=== PATIENT | male | born 1930 | race Caucasian/White ===

== ENCOUNTER 2017-06-04 12:55 | Inpatient (IN) | payer OTHER, BC ==
--- NOTE | 2017-06-04 13:13 | PDOC ---
Attending Attestation - Resident Resident Name: Elvira Cho - ED Attending Attestation I have performed the following: I have examined & evaluated the patient, The case was reviewed & discussed with the resident, I agree w/resident's findings & plan, Exceptions are as noted - HPI HPI: 87 yo M hx Parkinson's, HTN, HL, hyperthyroid, diverticulitis, R hemicolectomy presents after mechanical fall. He sustained injuries to his face as he hit the ground. No LOC, no headache. He notes pain to the nasal bridge with significant bleeding from the nares B/L. +Laceration to R nare. No loose teeth (he wears dentures). Denies weakness, numbness. - Physicial Exam PE: GENERAL: Awake, alert, and fully oriented, in no acute distress HEAD: +Multiple abrasions to the forehead, nose, and chin. +Laceration to the tip of the R nare extending to the mucosal surface. +Small arteriole bleeding at the tip of the R nare. +Oozing of blood from the chin and forehead abrasions. +Swelling to mid-forehead. EYES: PERRLA, EOMI, sclera anicteric, conjunctiva clear ENT: Auricles normal inspection, hearing grossly normal, oropharynx clear without exudates. Moist mucosa. Nares with bleeding B/L. Nose with obvious deformity. No oral mucosal lesions. NECK: Normal ROM, supple, no lymphadenopathy, JVD, or masses LUNGS: Breath sounds equal, clear to auscultation bilaterally. No wheezes, and no crackles HEART: Regular rate and rhythm, normal S1 and S2, no murmurs, rubs or gallops ABDOMEN: Soft, nontender, normoactive bowel sounds. No guarding, no rebound. No masses EXTREMITIES: Normal range of motion, no edema. No clubbing or cyanosis. No cords, erythema, or tenderness NEUROLOGICAL: Cranial nerves II through XII grossly intact. Normal speech, normal gait. Motor and sensation intact. SKIN: Warm, Dry, normal turgor, no rashes or lesions noted. - Medical Decision Making Sutures placed to the tip of the nose for hemostasis. Will contact ENT or plastics for repair of the interior portion of the nare. No oral bleeding- dentures are glued in place, unable to remove.
--- NOTE | 2017-06-04 13:28 | PDOC ---
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 He notes that he just got new orthotic shoes around [place] time, and is not used to them yet, and he tripped and fell while trying to walk to his mailbox. He did not have any preceding symptoms, and did not lose consciousness. He has been bleeding from multiple facial lacerations since that time. He denies any current or recent dizziness, chest pain, SOB, abdominal pain, other bodily pain, vision changes, new numbness/ tingling/weakness, or other symptoms recently. Past History - Past Medical History Allergies/Adverse Reactions: Allergies Allergy/AdvReac Type Severity Reaction Status Date / Time No Known Allergies Allergy Verified 04/06/16 15:17 Home Medications: Ambulatory Orders Aspirin [Baby Aspirin] 81 mg PO DAILY 06/28/11 Cholecalciferol (Vitamin D3) [Vitamin D3 -] 0 unit PO DAILY 06/28/11 Lisinopril [Prinivil] 20 mg PO DAILY 06/28/11 Ropinirole HCl [Requip Xl] 4 mg PO BID 06/28/11 Simvastatin [Zocor] 20 mg PO DAILY 06/28/11 Propylthiouracil [Ptu -] 50 mg PO BID 07/13/11 Benztropine Mesylate [Cogentin -] 1 mg PO DAILY 04/06/16 Carbidopa/Levodopa/Entacapone [Miyfeovck-Wshwhqck-Ccub 200 mg] 1 each PO TID 11/13 Polyethylene Glycol [Polyox Wsr-301] 1 gm MC DAILY #30 powder 04/08/16 Ranitidine [Zantac -] 150 mg PO BID #60 tablet 04/08/16 Anemia: No Asthma: No Cancer: No Cardiac Disorders: No CVA: No COPD: No CHF: No Dementia: No Diabetes: No GI Disorders: Yes (H/O COLONIC POLYPS, DIVERTICULOSIS) Disorders: Yes (MICROSCOPIC HEMATURIA) HTN: Yes Hypercholesterolemia: Yes Liver Disease: No Seizures: No Thyroid Disease: Yes (HYPERTHYROIDISM) - Surgical History Abdominal Surgery: (RIGHT HEMICOLECTOMY) Appendectomy: Yes (S/P HEMICOLECTOMY FOR APPENDICEAL ABCESS) Cardiac Surgery: No Cholecystectomy: No Lung Surgery: No Neurologic Surgery: No Orthopedic Surgery: No - Immunization History Immunization Up to Date: No - Suicide/Smoking/Psychosocial Hx Smoking Status: No Smoking History: Former smoker Have you smoked in the past 12 months: No Number of Cigarettes Smoked Daily: 0 If you are a former smoker, when did you quit?: 1975 Hx Alcohol Use: Yes (SOCIAL) Drug/Substance Use Hx: No Substance Use Type: None Hx Substance Use Treatment: No Trauma Specific PMHX - Complaint Specific PMHX Arthritis: Yes ED Treatment Course - LABORATORY CBC & Chemistry Diagram: 06/04/17 14:15 06/04/17 14:15 Medical Decision Making - Medical Decision Making 87 YOM on blood thinners, with Parkinsons and occasional falls, p/w fall, facial lacs, bleeding from nares. On exam VS not concerning, he is in no distress but oozing blood from facial lacerations, nasal tip lac extends inside right nare. Frontal inferior cephalohematoma but no other obvious signs of skull fxr. Initially shoulders symmetric bilaterally and 3x3cm left shoulder superficial abrasion noted. Subsequently 6x6 cm firm hematoma versus bony deformity develops. Ordered is CBCD CMP Coags T&S Cardiac panel EKG CXR Shoulder XR Clavicle XR and CT head/facial bones/c-spine. 06/04/17 16:18 Spoke with ENT senior quality control inspector who recommends packing x15-20 min with Afrin-soaked 4x4, then vaseline-soaked gauze. If unable to achieve hemostasis we will call back. If hemostasis is achieved there is no need to repair intranasal laceration. 06/04/17 19:58 Epistaxis stopped with Afrin gauze packing and tongue blade splint. Patient able to urinate and gives sample for UA. Still denies any pain. Patient has been admitted to Obs Med/Surg. Augmentin ordered. *DC/Admit/Observation/Transfer Diagnosis at time of Disposition: Fall from ground level, Gait abnormality, Epistaxis Facial laceration Qualifiers: Encounter type: initial encounter Qualified Code(s): S01.81XA - Laceration without foreign body of other part of head, initial encounter Nasal bone fracture Qualifiers: Encounter type: initial encounter Fracture type: closed Qualified Code(s): S02.2XXA - Fracture of nasal bones, initial encounter for closed fracture - Discharge Dispostion Condition at time of disposition: Guarded Admit: Yes - Referrals Referrals: Marcello Hill MD [Primary Care Provider] - - Patient Instructions - Post Discharge Activity
[2017-06-04] MEDS ORDERED: AMPICILLIN NA/SULBACTAM NA 3 GM in SODIUM CHLORIDE 100 ML IVPB ONE ×2 (14:08→21:30)
[2017-06-04 14:23] LABS: BASO % 0.3 % (0-2.0); EOS % 0.5 % (0-4.5); HEMATOCRIT 42.7 % (35.4-49); HEMOGLOBIN 13.8 GM/dL (11.7-16.9); LYMPH % 13.5 % (8-40); MCH 28.9 pg (25.7-33.7); MCHC 32.3 g/dl (32.0-35.9); MEAN CELL VOLUME 89.5 fl (80-96); MEAN PLT VOLUME 8.6 fl (7.5-11.1); MONO % 9.7 % (3.8-10.2); PLATELET COUNT 126 K/MM3 (134-434); RBC 4.77 M/mm3 (4.00-5.60); RDW 13.1 % (11.9-15.9); WHITE BLOOD COUNT 8.1 K/mm3 (4.0-10.0)
[2017-06-04 14:36] LABS: INR 0.97 (0.82-1.09)
[2017-06-04 14:54] LABS: ALBUMIN 3.8 g/dl (3.4-5.0); ANION GAP 6 (8-16); BILIRUBIN,TOTAL 0.7 mg/dL (0.2-1.0); BLOOD UREA NITROGEN 19 mg/dL (7-18); CALCIUM 8.8 mg/dL (8.5-10.1); CHLORIDE 104 mmol/L (98-107); CO2 30 mmol/L (21-32); CREATININE 1.1 mg/dL (0.7-1.3); GLUCOSE,RANDOM 94 mg/dL (74-106); POTASSIUM 4.2 mmol/L (3.5-5.1); SGOT/AST 21 U/L (15-37); SGPT/ALT 16 U/L (12-78); SODIUM 140 mmol/L (136-145); TOT PROT 7.2 g/dl (6.4-8.2)
[2017-06-04] MEDS ORDERED: DIPHTH,PERTUSS(ACELL),TET 0.5 ML DISP.SYRIN IM ONE (14:54)
[2017-06-04 14:56] LABS: ALK PHOS 65 U/L (45-117)
[2017-06-04] MEDS ORDERED: OXYMETAZOLINE 0.05% NASAL SOLUTION 15 ML BOTTLE NS ONE (16:55)
[2017-06-04 19:49] LABS: URINE APPEARANCE CLEAR; URINE BILIRUBIN NEGATIVE (NEGATIVE); URINE BLOOD 1+ (NEGATIVE); URINE COLOR YELLOW; URINE GLUCOSE (UA) NEGATIVE (NEGATIVE); URINE KETONE TRACE (NEGATIVE); URINE LEUK ESTERASE NEGATIVE (NEGATIVE); URINE NITRITE NEGATIVE (NEGATIVE); URINE PROTEIN NEGATIVE (NEGATIVE); URINE UROBILINOGEN NEGATIVE mg/dL (0.2-1.0)
[2017-06-04 19:53] LABS: EPI CELLS RARE /HPF (FEW); URINE MUCUS RARE
[2017-06-04] MEDS ORDERED: SODIUM CHLORIDE 500 ML IV STA (20:17)
--- NOTE | 2017-06-04 21:00 | PN ---
Teaching Attending Note Name of Resident: Michelle Shepherd ATTENDING PHYSICIAN STATEMENT I saw and evaluated the patient. I reviewed the resident's note and discussed the case with the resident. I agree with the resident's findings and plan as documented. SUBJECTIVE: 87 With pmhx Parkinson's, HTN, HLD, Hyperthyriodism, Diverticulitis, R. Hemicolectomy who presents after a mechanical fall. He stated he was shuffeling his feet and he fell. He hit his face on the ground. Denies any loss of consciousness. Denies any lightheadedness, dizziness, chest pain or pressure prior. No palpitations prior. No fevers, Chills or N/V/D. Currently denies any pain, headache OBJECTIVE: Physical: VS: Vital Signs Period Temp Pulse Resp BP Sys/Bran Pulse Ox Last 24 Hr 97.8 F-98.4 F 69-85 16-17 133-151/67-74 96-100 GEN: NAD, Resting in bed, AA0X3 HEENT: Face with nasal bandage, frontal head hematoma, abrasion on chin, with dried blood inside mouth and mild edema of high palate, Echymosis around bilateral eyes, PERRL CARD: RRR S1, S2 RESP: CTAB ABD:BSx4, NTD to palpation EXT: Echymosis on bilateral hands, - Edema on LE or UE, Pulses intact CBCD WBC 8.1 K/mm3 (4.0-10.0) D 06/04/17 14:15 RBC 4.77 M/mm3 (4.00-5.60) 06/04/17 14:15 Hgb 13.8 GM/dL (11.7-16.9) 06/04/17 14:15 Hct 42.7 % (35.4-49) 06/04/17 14:15 MCV 89.5 fl (80-96) 06/04/17 14:15 MCHC 32.3 g/dl (32.0-35.9) 06/04/17 14:15 RDW 13.1 % (11.9-15.9) 06/04/17 14:15 Plt Count 126 K/MM3 (134-434) L 06/04/17 14:15 MPV 8.6 fl (7.5-11.1) 06/04/17 14:15 CMP Sodium 140 mmol/L (136-145) 06/04/17 14:15 Potassium 4.2 mmol/L (3.5-5.1) 06/04/17 14:15 Chloride 104 mmol/L (98-107) 06/04/17 14:15 Carbon Dioxide 30 mmol/L (21-32) 06/04/17 14:15 Anion Gap 6 (8-16) L 06/04/17 14:15 BUN 19 mg/dL (7-18) H D 06/04/17 14:15 Creatinine 1.1 mg/dL (0.7-1.3) D 06/04/17 14:15 Creat Clearance w eGFR > 60 (>60) 06/04/17 14:15 Random Glucose 94 mg/dL (74-106) D 06/04/17 14:15 Calcium 8.8 mg/dL (8.5-10.1) 06/04/17 14:15 Total Bilirubin 0.7 mg/dL (0.2-1.0) D 06/04/17 14:15 AST 21 U/L (15-37) D 06/04/17 14:15 ALT 16 U/L (12-78) D 06/04/17 14:15 Alkaline Phosphatase 65 U/L (45-117) 06/04/17 14:15 Total Protein 7.2 g/dl (6.4-8.2) 06/04/17 14:15 Albumin 3.8 g/dl (3.4-5.0) 06/04/17 14:15 CARDIAC ENZYMES Creatine Kinase 278 IU/L (39-308) 06/04/17 14:15 Troponin I 0.03 ng/ml (0.00-0.05) 06/04/17 14:15 Home Medications Medication Instructions Recorded Aspirin [Baby Aspirin] 81 mg PO DAILY 06/28/11 Cholecalciferol (Vitamin D3) 0 unit PO DAILY 06/28/11 [Vitamin D3 -] Lisinopril [Prinivil] 20 mg PO DAILY 06/28/11 Ropinirole HCl [Requip Xl] 4 mg PO BID 06/28/11 Simvastatin [Zocor] 20 mg PO DAILY 06/28/11 Propylthiouracil [Ptu -] 50 mg PO BID 07/13/11 Benztropine Mesylate [Cogentin -] 1 mg PO DAILY 04/06/16 Carbidopa/Levodopa/Entacapone 1 each PO TID 04/06/16 [Mhmzaqrwn-Ovaidvqn-Sdqn 200 mg] Polyethylene Glycol [Polyox 1 gm MC DAILY #30 powder 04/08/16 Wsr-301] Ranitidine [Zantac -] 150 mg PO BID #60 tablet 04/08/16 CT C-Spine: No acute fracture CT Facial Bones/HEAD: SLightly depressed left nasal bone fracture woth mod. overlying soft tissue swelling, irregular nasal spine with minimally depressed fx. Soft tissue hematoma over mid head involving nasal frontal jxn. ASSESSMENT AND PLAN: 87 With pmhx Parkinson's, HTN, HLD, Hyperthyriodism, Diverticulitis, R. Hemicolectolemy, who presents with Mechanical Fall 1.) Mechanical Fall with depressed L. nasal bone fx - C/W Augmentin - ENT FU - Packed with Afrin soaked 4X4 vaseline soaked gauze, as per ENT if hemostasis is acheived then no need to repair lac. - Mouth mucosal edema- NPO, Speech and swallow 2.) Hyperthyriodism\ - C/W PTU 3.) Parkinson's - C/W Cogentin, 4.) DVT PPX - SCDs Place In Med-Sx
[2017-06-04] MEDS ORDERED: AMPICILLIN NA/SULBACTAM NA 3 GM VIAL IM ONE (21:13)
--- NOTE | 2017-06-04 21:20 | HP ---
CHIEF COMPLAINT: s/p fall PCP: HISTORY OF PRESENT ILLNESS: 87 y/o M with PMH Parkinson's dementia, multiple falls, HTN, HLD, hyperthyroidism, diveritculitis, R hemicolectomy (~20 yrs ago), who was BIBEMS s /p fall earlier this afternoon. As per pt, he was walking to his mailbox with his cane, when he noticed that his lower extremities were shuffling more than usual. Pt was unable to catch himself, so he fell face down on the pavement. He endorses bruised, bloody nose, as well as ecchymosis on his R shoulders and dorsums of the hands b/l. Pt denies palpitations, lightheadedness prior to the event, or LOC s/p fall. He is unaware of how long he was on the ground for. As per daughter, a neighbor found him outstretched on the ground, and thus called an ambulance. Currently, pt denies other sx such as REYES, fever, chills, SOB, chest pain, or changes in urinary or bowel function. At baseline, pt lives alone at home. He is mostly independent concerning his ADL 's, however pt's family cooks for him and he warms his food. He has had multiple falls and daughter expresses concern. She would like him to live in a facility where he can be checked on. He ambulates with a cane. 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) Smoking: quit smoking in 1975; prior had smoked for 20 yrs, 1-1.5 ppd Alcohol: socially Drugs: denies Family History: non-contributory Allergies No Known Allergies Allergy (Verified 04/06/16 15:17) HOME MEDICATIONS: Home Medications Medication Instructions Recorded Aspirin [Baby Aspirin] 81 mg PO DAILY 06/28/11 Cholecalciferol (Vitamin D3) 0 unit PO DAILY 06/28/11 [Vitamin D3 -] Lisinopril [Prinivil] 20 mg PO DAILY 06/28/11 Ropinirole HCl [Requip Xl] 4 mg PO BID 06/28/11 Simvastatin [Zocor] 20 mg PO DAILY 06/28/11 Propylthiouracil [Ptu -] 50 mg PO BID 07/13/11 Benztropine Mesylate [Cogentin -] 1 mg PO DAILY 04/06/16 Carbidopa/Levodopa/Entacapone 1 each PO TID 04/06/16 [Zipquzjxy-Lpasmrxo-Ktsg 200 mg] Polyethylene Glycol [Polyox 1 gm MC DAILY #30 powder 04/08/16 Wsr-301] Ranitidine [Zantac -] 150 mg PO BID #60 tablet 04/08/16 REVIEW OF SYSTEMS CONSTITUTIONAL: Absent: fever, chills, diaphoresis, generalized weakness, malaise, loss of appetite, weight change HEENT: +periorbital ecchymoses b/l, +bruised, bleeding nose Absent: rhinorrhea, nasal congestion, throat pain, throat swelling, difficulty swallowing, mouth swelling, ear pain, eye pain, visual changes CARDIOVASCULAR: Absent: chest pain, syncope, palpitations, irregular heart rate, lightheadedness , peripheral edema RESPIRATORY: Absent: cough, shortness of breath, dyspnea with exertion, orthopnea, wheezing, stridor, hemoptysis GASTROINTESTINAL: Absent: abdominal pain, abdominal distension, nausea, vomiting, diarrhea, constipation, melena, hematochezia GENITOURINARY: Absent: dysuria, frequency, urgency, hesitancy, hematuria, flank pain, genital pain MUSCULOSKELETAL: Absent: myalgia, arthralgia, joint swelling, back pain, neck pain SKIN: Absent: rash, itching, pallor HEMATOLOGIC/IMMUNOLOGIC: +ecchymoses on dorsums of hands b/l, + ecchymoses R shoulder Absent: easy bleeding, easy bruising, lymphadenopathy, frequent infections ENDOCRINE: Absent: unexplained weight gain, unexplained weight loss, heat intolerance, cold intolerance NEUROLOGIC: +unsteady gait Absent: headache, focal weakness or paresthesias, dizziness, seizure, mental status changes, bladder or bowel incontinence PSYCHIATRIC: Absent: anxiety, depression, suicidal or homicidal ideation, hallucinations. PHYSICAL EXAMINATION Vital Signs - 24 hr 06/04/17 19:08 Temperature 97.8 F Pulse Rate Pulse Rate [ 69 Left] Respiratory 16 Rate Blood Pressure Blood Pressure 133/67 [Left] O2 Sat by Pulse 100 Oximetry (%) GENERAL: Sitting up in bed. AAOx3, in no acute distress. However, with extensive bruising. HEAD: +Chin- ecchymotic, actively bleeding EYES: Pupils equal, round and reactive to light, extraocular movements intact, sclera anicteric, conjunctiva clear. +periorbital ecchymoses b/l EARS, NOSE, THROAT: Ears normal, +ecchymotic nose, with bruising and +actively bleeding superficially. +nasal packing. +cracked, edematous lips NECK: Normal range of motion, supple SHOULDER: +R shoulder ecchymoses LUNGS: Rhonchi appreciated b/l. However without crackles or wheezes. No accessory m. usage. HEART: Regular rate and rhythm, normal S1 and S2 without murmur, rub or gallop. ABDOMEN: Soft, nontender, not distended, normoactive bowel sounds, no guarding, no rebound, no masses. MUSCULOSKELETAL: Normal range of motion at all joints. Motor strength 3/5 RUE, RLE vs. 4/5 LUE, LLE. Sensation intact. LOWER EXTREMITIES: 2+ posterior tibial pulses, warm, well-perfused. No calf tenderness. No peripheral edema. NEUROLOGICAL: Cranial nerves II-XII intact. PSYCHIATRIC: Cooperative. Laboratory Results 06/04/17 06/04/17 06/04/17 14:15 14:15 19:40 WBC 8.1 D Hgb 13.8 Hct 42.7 Plt Count 126 L Sodium 140 Potassium 4.2 Chloride 104 Carbon Dioxide 30 BUN 19 H D Creatinine 1.1 D CK-MB (CK-2) 8.471 H Urine Ketones Trace H Urine Blood 1+ H Microbiology -Urine CX: pending Radio -Facial/bone CT/Head CT: frontal anterior cephalohematoma, minimally depressed fx- L nasal bone. Nasal septum deviation to the L. Minimally displaced fx. Nasal spinal fx. degenerative disc disease C4-C5, spur C3-C4. -CXR: WNL, no acute pathology ASSESSMENT/PLAN: 87 y/o M with PMH Parkinson's dementia, multiple falls, HTN, HLD, hyperthyroidism, diveritculitis, R hemicolectomy (~20 yrs ago), who was BIBEMS s /p fall earlier this afternoon. Pt admitted to med-surg s/p mechanical fall with depressed L nasal bone fx. #s/p Mechanical fall with depressed L nasal bone fx -Received 1 dose of unasyn 3g in ED. Prophylactic given nature of fall -Received diphetheria, tetanus vaccine (Boosterix) -Continued on second dose unasyn 3g -Tomorrow, will start augmentin, after seen by speech & swallow -Social work consult- as pt with hx falls, living independently- may benefit from home -Speech & Swallow consult- pt w/hx parkinson's, has difficulty with swallow -F/u ENT consult- Dr. Guy. If hemostasis, will not need to repair laceration #Parkinson's dementia -Continue Benztropine 1mg PO qd -Continue carbidopa/levodopa/entacapone PO TID -Ropinorole 4mg PO BID #HTN- currently controlled -continue lisinopril 20mg PO qd #HLD -Continue simvastatin 20mg PO qd #Hyperthyroidism -Continue PTU 50mg PO TID #PPX DVT: SCD's #F/E/N IV NS 100 cc/hr Monitor electrolytes NPO, until speech and swallow consult #Dispo med-surg Visit type - Emergency Visit Emergency Visit: Yes ED Registration Date: 06/04/17 Care time: The patient presented to the Emergency Department on the above date and was hospitalized for further evaluation of their emergent condition. - New Patient This patient is new to me today: Yes Date on this admission: 06/05/17 - Critical Care Critical Care patient: No
[2017-06-04] MEDS ORDERED: ROPINIROLE HCL 4 MG PO SCH (22:00)
[2017-06-04] MEDS: ATORVASTATIN CA 10 MG TABLET (FP) PO SCH (22:58)
[2017-06-04] MEDS: LISINOPRIL 20 MG TABLET (FP) PO SCH (22:58)
[2017-06-04] MEDS: PROPYLTHIOURACIL 50 MG TABLET (UD) PO SCH (22:58)
[2017-06-04] MEDS: RANITIDINE HCL 150 MG TABLET (FP) PO SCH (22:58)
[2017-06-04] MEDS: CARBIDOP 50MG/LEVODOPA 200MG/ENTACAPONE 200MG TABLET PO SCH (23:01)
[2017-06-04] MEDS: BENZTROPINE MESYLATE 1 MG TABLET (FP) PO SCH (23:02)
[2017-06-04] MEDS: ASPIRIN 81 MG CHEWABLE TABLETS PO SCH (23:27)
[2017-06-04] MEDS: SODIUM CHLORIDE 1,000 ML IV SCH (23:33)
[2017-06-05 01:29] VITALS: BMI 25.7
[2017-06-05] MEDS ORDERED: PT OWN MED DRAWER 7, Y5N ONE ×3 (01:36→14:15)
[2017-06-05] MEDS: CARBIDOP 50MG/LEVODOPA 200MG/ENTACAPONE 200MG TABLET PO SCH ×3 (05:52→21:15)
[2017-06-05 08:22] LABS: ANION GAP 8 (8-16); BASO % 0.2 % (0-2.0); BLOOD UREA NITROGEN 15 mg/dL (7-18); CALCIUM 8.7 mg/dL (8.5-10.1); CHLORIDE 106 mmol/L (98-107); CO2 27 mmol/L (21-32); CREATININE 0.9 mg/dL (0.7-1.3); EOS % 0.2 % (0-4.5); GLUCOSE,RANDOM 97 mg/dL (74-106); HEMATOCRIT 40.4 % (35.4-49); HEMOGLOBIN 13.2 GM/dL (11.7-16.9); LYMPH % 17.9 % (8-40); MCH 29.1 pg (25.7-33.7); MCHC 32.6 g/dl (32.0-35.9); MEAN PLT VOLUME 8.8 fl (7.5-11.1); MONO % 11.3 % (3.8-10.2); NEUT % 70.4 % (42.8-82.8); PLATELET COUNT 118 K/MM3 (134-434); POTASSIUM 4.2 mmol/L (3.5-5.1); RBC 4.53 M/mm3 (4.00-5.60); RDW 12.9 % (11.9-15.9); SODIUM 141 mmol/L (136-145); WHITE BLOOD COUNT 8.2 K/mm3 (4.0-10.0)
[2017-06-05] MEDS ORDERED: AMOX TR/POT CLAV 250MG/125MG TABLETS PO SCH (10:00)
[2017-06-05] MEDS: BENZTROPINE MESYLATE 1 MG TABLET (FP) PO SCH (10:09)
[2017-06-05] MEDS: ASPIRIN 81 MG CHEWABLE TABLETS PO SCH (10:09)
[2017-06-05] MEDS: POLYETHYLENE GLYCOL 3350 119 GM BTL PO SCH (10:10)
[2017-06-05] MEDS: LISINOPRIL 20 MG TABLET (FP) PO SCH (10:10)
[2017-06-05] MEDS: PROPYLTHIOURACIL 50 MG TABLET (UD) PO SCH ×2 (10:10→21:15)
[2017-06-05] MEDS: RANITIDINE HCL 150 MG TABLET (FP) PO SCH ×2 (10:11→21:13)
--- NOTE | 2017-06-05 12:51 | EKG ---
Test Reason : Blood Pressure : / mmHG Vent. Rate : 075 BPM Atrial Rate : 075 BPM P-R Int : 000 ms QRS Dur : 084 ms QT Int : 380 ms P-R-T Axes : 000 -06 025 degrees QTc Int : 424 ms SINUS RHYTHM MINIMAL VOLTAGE CRITERIA FOR LVH, MAY BE NORMAL VARIANT ABNORMAL ECG WHEN COMPARED WITH ECG OF 06-APR-2016 16:12, LIKELY NO SIGNIFICANT CHANGES WERE SEEN Confirmed by WILMA TRINH MD ([id number]) on 06/05/2017 12:50:54 PM Referred By: Confirmed By:WILMA TRINH MD
--- NOTE | 2017-06-05 13:35 | PN ---
Progress Note, Physician Chief Complaint: Mr Rueda says he is feeling well. Says he is not having pain. No cp, sob, n/ v. - Current Medication List Current Medications: Active Medications Aspirin (Asa -) 81 mg PO DAILY [facility] Last Admin: 06/05/17 10:09 Dose: 81 mg Atorvastatin Calcium (Lipitor -) 10 mg PO HS [facility] Last Admin: 06/04/17 22:58 Dose: 10 mg Benztropine Mesylate (Cogentin -) 1 mg PO DAILY [facility] Last Admin: 06/05/17 10:09 Dose: 1 mg Carbidopa/Levodopa/Entacapone (Stalevo 200 -) 1 each PO TID [facility] Last Admin: 06/05/17 05:52 Dose: 1 each Sodium Chloride (Normal Saline -) 1,000 mls @ 100 mls/hr IV ASDIR [facility] Last Admin: 06/04/17 23:33 Dose: 100 mls/hr Lisinopril (Prinivil) 20 mg PO DAILY [facility] Last Admin: 06/05/17 10:10 Dose: 20 mg Non-Formulary Medication (Ropinirole Hcl [Requip Xl]) 4 mg PO BID [facility] Polyethylene Glycol (Miralax (For Daily Use) -) 17 gm PO DAILY [facility] Last Admin: 06/05/17 10:10 Dose: Not Given Propylthiouracil (Ptu -) 50 mg PO BID [facility] Last Admin: 06/05/17 10:10 Dose: 50 mg Ranitidine HCl (Zantac -) 150 mg PO BID [facility] Last Admin: 06/05/17 10:11 Dose: 150 mg - Objective Vital Signs: Vital Signs Temperature 37.1 C 06/05/17 07:58 Pulse Rate 63 06/05/17 07:58 Respiratory Rate 18 06/05/17 07:58 Blood Pressure 153/68 06/05/17 07:58 O2 Sat by Pulse Oximetry (%) 100 06/04/17 22:35 Constitutional: Yes: Well Nourished, No Distress, Calm Eyes: Yes: Other (bruising) HENT: Yes: Other (bruising with abrasions) Cardiovascular: Yes: Regular Rate and Rhythm. No: Gallop, Murmur, Rub Respiratory: Yes: Regular, CTA Bilaterally. No: Rales, Rhonchi, Wheezes Gastrointestinal: Yes: Normal Bowel Sounds, Soft. No: Distention, Tenderness Extremities: Yes: WNL Edema: No Labs: CBC, BMP 06/05/17 06:00 06/05/17 06:00 INR, PTT INR 0.97 (0.82-1.09) 06/04/17 14:15 Problem List - Problems (1) Fall from ground level Assessment/Plan: -mechanical -PT note reviewed -walked 150ft, plan for discharge with HHC/HHPT to help prevent further falls Code(s): W18.30XA - FALL ON SAME LEVEL, UNSPECIFIED, INITIAL ENCOUNTER (2) Nasal bone fracture Assessment/Plan: -ENT consulted and note reviewed -bacitracin bid for 2 weeks -nasal spray bid Code(s): S02.2XXA - FRACTURE OF NASAL BONES, INIT ENCNTR FOR CLOSED FRACTURE Qualifiers: Encounter type: initial encounter Fracture type: closed Qualified Code(s) : S02.2XXA - Fracture of nasal bones, initial encounter for closed fracture (3) HTN (hypertension) Assessment/Plan: -continue lisinopril Code(s): I10 - ESSENTIAL (PRIMARY) HYPERTENSION (4) Hyperlipemia Assessment/Plan: -continue lipitor Code(s): E78.5 - HYPERLIPIDEMIA, UNSPECIFIED (5) Dysphagia Assessment/Plan: -appreciate speech therapy -place on dysphagia puree diet with nectar thick liquids Code(s): R13.10 - DYSPHAGIA, UNSPECIFIED (6) Hyperthyroidism Assessment/Plan: -continue PTU Code(s): E05.90 - THYROTOXICOSIS, UNSP WITHOUT THYROTOXIC CRISIS OR STORM (7) Parkinson disease Assessment/Plan: -outpatient neurology to continue to follow -continue current regimen -place on dysphagia diet with nectar thick liquids -home with VNS and home physical therapy/occupational therapy to help strengthening and prevent further falls Code(s): G20 - PARKINSON'S DISEASE Assessment/Plan Dispo -plan for discharge tomorrow with VNS
[2017-06-05] MEDS: SODIUM CHLORIDE 1,000 ML IV SCH ×2 (13:57→21:14)
--- NOTE | 2017-06-05 14:47 | CONSULT ---
Admitting History and Physical - Primary Care Physician PCP: Ba Spencer - Admission History of Present Illness: Per EMR: 87 y/o M with PMH Parkinson's dementia, multiple falls, HTN, HLD, hyperthyroidism, diveritculitis, R hemicolectomy (~20 yrs ago), who was BIBEMS s /p mechanical fall with depressed L nasal bone fx. Known to me from 05/2015 MBS and admission. Moderate dysphagia with significant stasis in pharynx. Puree and sips of thin liquid as well as swallowing tx recommended at that time. Pt's daughter said that his swallowing improved significantly with PD modification and he has been eating reg diet and thin liquids. She avoids giving him rice and doesnt use straws. He has not had swallowing therpy and denies h/o PNA. 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: Parkinson's Cardiovascular: Yes: HTN, Hyperlipdemia Gastrointestinal: Yes: Diverticulosis Renal/: Yes: Hematuria (microscopic) Musculoskeletal: Yes: Other (left shoulder injury s/p fall) Endocrine: Yes: Hyperthyroidism - Past Surgical History Past Surgical History: Yes: Colectomy (right hemicolectomy for appendiceal abscess) - Smoking History Smoking history: Former smoker Have you smoked in the past 12 months: No Aproximately how many cigarettes per day: 0 If you are a former smoker, when did you quit?: 1975 - Alcohol/Substance Use Hx Alcohol Use: Yes (SOCIAL) History of Substance Use: reports: None - Social History ADL: Family Assistance 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 History of Recent Travel: No History - Admission Reason For Visit: FALL ABNORMAL GAIT FACIAL LACERATION - Diagnostics X-ray: Report Reviewed - General Mental Status: Alert and Oriented, Awake and Alert, Able to Follow Commands Attention: Intact Ability to Follow Directions: Good Head/Neck Control: WFL - Hearing Hearing: Normal Hearing Aide: No Speech Evaluation - Communication Primary Language: UPPER SORBI[place] Oral Expression Ability: Yes: Mild Impairment - Speech Production Able to Make Needs Known: Yes: WNL Intelligibility: Yes: WNL - Speech Characteristics Voice Loudness: Normal Voice Pitch: Yes: Normal Voice Phonatory-based Quality: Yes: Dysphonia, Vocal Wetness Speech Clarity: < 100% Nasal Resonance: Normal Articulation: Yes: Precise - Language/Verbal Expression Able to Respond to Simple Queries: Yes: WNL Able to Communicate Wants and Needs: Yes: WNL Functional Communication Status: Yes: WNL - Swallow Evaluation/Bedside Assessment Current Nutritional Intake: NPO Facial Symmetry at Rest: Symmetrical (Bilabial swelling sec fall) Facial Symmetry on Retraction: Symmetrical Pucker Lips: Reduced ROM, Bilabial Closure (reduced sec swelling) Lingual Movement: Symmetric Lingual Speed of Movement: Normal Laryngeal Movement: Able to Palpate, Reduced Excursion, Labored,delay initiation Labial Seal: Impaired Bilaterally Oral Prep Time: Increased A-P Transit: Impaired Timing of Swallow: Delayed Coughing/Throat Clear: Yes (thin liquid from straw reported) Recommendations - Speech Evaluation, Impression/Plan Impression: Multiple swallows generated per 1/2 tsp of puree, c/w stasis. Multiple swallows generated per sip of water, with brief throat clear/vocal wetness. Aspiration? - Dysphagia Impressions/Plan Dysphagia Impressions: Ongoing Evaluation, Suspect Aspiration (and stasis) *Silent aspiration: cannot be R/O at bedside Recommendations: Modified Barium Swallow, Other (Monitor PO tolerance. If cough/ vocal wetness, NPO until MBS) - Recommendations Diet Consistency: Dysphagia Pureed Medication Administration: Crushed with applesauce Liquids: Big Pool Thick Supplement: Magic Cup, Ensure Pudding
--- NOTE | 2017-06-05 18:59 | CON.ENT ---
Consult Consult Specialty:: ent Reason for Consultation:: broken nose - History of Present Illness Chief Complaint: broke nose History of Present Illness: 87M with Parkinson's Disease/Dementia brought in by emergency services to ER yesterday morning after his legs gave out and he fell on his face. He denies LOC and had "just a little"nosebleed after. CT Face done showing nasal fracture. Also charge review notes dysphagia. He feels his voice is gradually weaker with the Parkinson's but denies SOB, dysphagia, or hx aspiration PNA. Denies nasal congestion. No double vision, malocclusion, or sig facial pain. "I take pain pretty well." Consult passed along to me this morning by the weekend physician after d/w primary team. 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: Parkinson's Cardio/Vascular: Yes: HTN, Hyperlipdemia Gastrointestinal: Yes: Diverticulosis Renal/: Yes: Hematuria (microscopic) Musculoskeletal: Yes: Other (left shoulder injury s/p fall) Endocrine: Yes: Hyperthyroidism - Past Surgical History Past Surgical History: Yes: Colectomy (right hemicolectomy for appendiceal abscess) - Alcohol/Substance Use Hx Alcohol Use: Yes (SOCIAL) History of Substance Use: reports: None - Smoking History Smoking history: Former smoker Have you smoked in the past 12 months: No Aproximately how many cigarettes per day: 0 If you are a former smoker, when did you quit?: 1975 - Social History ADL: Family Assistance 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 History of Recent Travel: No Home Medications - Allergies Allergies/Adverse Reactions: Allergies Allergy/AdvReac Type Severity Reaction Status Date / Time No Known Allergies Allergy Verified 04/06/16 15:17 - Home Medications Home Medications: Ambulatory Orders Aspirin [Baby Aspirin] 81 mg PO DAILY 06/28/11 Cholecalciferol (Vitamin D3) [Vitamin D3 -] 0 unit PO DAILY 06/28/11 Lisinopril [Prinivil] 20 mg PO DAILY 06/28/11 Ropinirole HCl [Requip Xl] 4 mg PO BID 06/28/11 Simvastatin [Zocor] 20 mg PO DAILY 06/28/11 Propylthiouracil [Ptu -] 50 mg PO BID 07/13/11 Benztropine Mesylate [Cogentin -] 1 mg PO DAILY 04/06/16 Carbidopa/Levodopa/Entacapone [Vbcnnruwy-Xejypkgm-Rtyz 200 mg] 1 each PO TID 11/13 Polyethylene Glycol [Polyox Wsr-301] 1 gm MC DAILY #30 powder 04/08/16 Ranitidine [Zantac -] 150 mg PO BID #60 tablet 04/08/16 Family Disease History - Family Disease History Family Disease History: CA: Mother (lymphoma) Review of Systems - Review of Systems Eyes: denies: Blurred Vision, Double Vision HENT: reports: Epistaxis. denies: Difficult Swallowing Physical Exam-ENT Vital Signs: Vital Signs Temperature 97.2 F L 06/05/17 17:57 Pulse Rate 55 L 06/05/17 17:57 Respiratory Rate 18 06/05/17 17:57 Blood Pressure 112/50 06/05/17 17:57 O2 Sat by Pulse Oximetry (%) 98 06/05/17 09:00 Constitutional: Yes: Calm, Other (s/p trauma with bilateral periorbital echymoses/edema and abrasions midline from forehead to nose, to philtrum, to chin. Xeroform dressings removed. Underlying abrasions, superficial lacerations not bleeding. Voice slightly wet, but strong. no stridor/stertor) Face: Yes: Other (right lower lip edematous. no frontal, mandib, maxillary, temporal TTP. Slight TTP nasal bones. No sig nasal deviation/deflection.) Eyes: Yes: WNL Nose: Yes: Other (Skin changes as above. Dry blood crusts B ant nose. no septal hematoma) Oral/Pharynx: Yes: Other (dentres in place, refuses to remove ("They're glued in.") No overt intraoral lacs. FOM soft, flat. Tonsils recessed. Post o/p clear with min dry blood stain.) Outer Ear: Yes: WNL Ear Canal: Yes: Cerumen Tympanic Membrane: Yes: Other (cannot see - adv f/u can clean in office) Neurological: Yes: Other (cn 3-7,11,12 intact grossly) Imaging - Results Cat Scan: Report Reviewed (sl nasal bone fx.), Image Reviewed Other: Other (Flexible Fiberoptic Laryngoscopy: Explained rbla, pt consents. Passed endoscopy through n/c to supraglottis, withdrawn. Findings: 1. Pooling salivary secretions both pyriforms. 2. Both vocal cords mobile, symmetric with some atrophy. 3. Absent cough reflex response on either arytenoid.) Problem List - Problems (1) Nasal bone fracture Assessment/Plan: 87M s/p fall on face - Do not rec operative management of minimal nasal bone fractures - Lacerations are clotted off and superficial. As over 24 hours since fall, would not recommend suturing. Advise bacitracin ointment twice daily to abraded/ lacerated areas for two weeks. Can clean dry blood with half strength hydrogen peroxide. - Nasal saline spray advised. - Can re-evaluate and clean ears in 2-4 weeks. Code(s): S02.2XXA - FRACTURE OF NASAL BONES, INIT ENCNTR FOR CLOSED FRACTURE Qualifiers: Encounter type: initial encounter Fracture type: closed Qualified Code(s) : S02.2XXA - Fracture of nasal bones, initial encounter for closed fracture (2) Dysphagia Assessment/Plan: His larynx has diminished sensation and he did not cough despite directly tactile stimulation to arytenoids. +Pooling secretions in the pyriforms. - He is at risk for aspiration given these findings and aspiration precautions should be applied. - F/u Johanna Jurado for recs, food consistency. - Likely in part from his Parkinson's Disease; f/u adv with treating Neurologist. Further care per primary team. Thank you for this consultation. Code(s): R13.10 - DYSPHAGIA, UNSPECIFIED
[2017-06-05] MEDS: BACITRACIN 15 GM TUBE TOPICAL OINTMENT TP SCH (21:13)
[2017-06-05] MEDS: ATORVASTATIN CA 10 MG TABLET (FP) PO SCH (21:13)
[2017-06-05] MEDS: SODIUM CHLORIDE NASAL SPRAY 44 ML BOTTLE NS SCH (21:14)
[2017-06-06] MEDS: SODIUM CHLORIDE 1,000 ML IV SCH ×3 (00:04→21:28)
[2017-06-06] MEDS: CARBIDOP 50MG/LEVODOPA 200MG/ENTACAPONE 200MG TABLET PO SCH ×3 (06:15→21:30)
[2017-06-06 07:58] LABS: BASO % 0.2 % (0-2.0); EOS % 2.1 % (0-4.5); HEMOGLOBIN 12.8 GM/dL (11.7-16.9); LYMPH % 16.1 % (8-40); MCH 29.2 pg (25.7-33.7); MCHC 32.8 g/dl (32.0-35.9); MEAN CELL VOLUME 89.1 fl (80-96); MEAN PLT VOLUME 8.8 fl (7.5-11.1); MONO % 9.8 % (3.8-10.2); NEUT % 71.8 % (42.8-82.8); PLATELET COUNT 115 K/MM3 (134-434); RBC 4.38 M/mm3 (4.00-5.60); RDW 13.1 % (11.9-15.9); WHITE BLOOD COUNT 7.5 K/mm3 (4.0-10.0)
[2017-06-06 08:14] LABS: CHLORIDE 107 mmol/L (98-107); POTASSIUM 3.9 mmol/L (3.5-5.1); SODIUM 141 mmol/L (136-145)
[2017-06-06 08:21] LABS: ANION GAP 8 (8-16); BLOOD UREA NITROGEN 17 mg/dL (7-18); CALCIUM 8.8 mg/dL (8.5-10.1); CO2 26 mmol/L (21-32); CREATININE 0.9 mg/dL (0.7-1.3); GLUCOSE,RANDOM 73 mg/dL (74-106); PHOSPHOROUS 2.3 mg/dL (2.5-4.9)
[2017-06-06] MEDS ORDERED: PT OWN MED DRAWER 7, Y5N ONE (10:39)
[2017-06-06] MEDS: RANITIDINE HCL 150 MG TABLET (FP) PO SCH ×2 (10:43→21:31)
[2017-06-06] MEDS: ASPIRIN 81 MG CHEWABLE TABLETS PO SCH (10:43)
[2017-06-06] MEDS: LISINOPRIL 20 MG TABLET (FP) PO SCH (10:43)
[2017-06-06] MEDS: BENZTROPINE MESYLATE 1 MG TABLET (FP) PO SCH (10:44)
[2017-06-06] MEDS: PROPYLTHIOURACIL 50 MG TABLET (UD) PO SCH ×2 (10:44→21:30)
[2017-06-06] MEDS: BACITRACIN 15 GM TUBE TOPICAL OINTMENT TP SCH ×2 (10:45→21:29)
[2017-06-06] MEDS: POLYETHYLENE GLYCOL 3350 119 GM BTL PO SCH (10:45)
[2017-06-06] MEDS: SODIUM CHLORIDE NASAL SPRAY 44 ML BOTTLE NS SCH ×2 (10:47→21:30)
--- NOTE | 2017-06-06 14:44 | DS ---
Physical Examination Vital Signs: Vital Signs Temperature 36.8 C 06/06/17 14:00 Pulse Rate 70 06/06/17 14:00 Respiratory Rate 20 06/06/17 14:00 Blood Pressure 169/75 06/06/17 14:00 O2 Sat by Pulse Oximetry (%) 98 06/06/17 09:00 Constitutional: Yes: Well Nourished, No Distress, Calm Eyes: Yes: Other (periorbital ecchymosis) HENT: Yes: Other (bruising with lacerations) Cardiovascular: Yes: Regular Rate and Rhythm. No: Gallop, Murmur, Rub Respiratory: Yes: Regular, CTA Bilaterally. No: Rales, Rhonchi, Wheezes Gastrointestinal: Yes: Normal Bowel Sounds, Soft. No: Distention, Tenderness Extremities: Yes: WNL Edema: No Labs: CBC, BMP 06/06/17 06:30 06/06/17 06:30 Discharge Summary Reason For Visit: FALL ABNORMAL GAIT FACIAL LACERATION Current Active Problems Epistaxis (Acute) Facial laceration (Acute) Fall from ground level (Acute) Nasal bone fracture (Acute) Gait abnormality (Chronic) Hospital Course: (1) Fall from ground level Code(s): W18.30XA - FALL ON SAME LEVEL, UNSPECIFIED, INITIAL ENCOUNTER (2) Nasal bone fracture Code(s): S02.2XXA - FRACTURE OF NASAL BONES, INIT ENCNTR FOR CLOSED FRACTURE Qualifiers: Encounter type: initial encounter Fracture type: closed Qualified Code(s) : S02.2XXA - Fracture of nasal bones, initial encounter for closed fracture (3) HTN (hypertension) Code(s): I10 - ESSENTIAL (PRIMARY) HYPERTENSION (4) Hyperlipemia Code(s): E78.5 - HYPERLIPIDEMIA, UNSPECIFIED (5) Dysphagia Code(s): R13.10 - DYSPHAGIA, UNSPECIFIED (6) Hyperthyroidism Code(s): E05.90 - THYROTOXICOSIS, UNSP WITHOUT THYROTOXIC CRISIS OR STORM (7) Parkinson disease Code(s): G20 - PARKINSON'S DISEASE Mr Rueda is a very pleasant 87 year old male with history of Parkinsons disease and comes in with fall. He was admitted to the hospital secondary to this. He was seen by PT and was able to ambulate. He was seen by ENT and no surgical intervention needed. There was concern about swallowing, he was seen by speech therapy and determined he would benefit from a dysphagia diet. He is doing well and is safe for discharge. He will need home VNS for home PT to prevent further falls. He will also need home OT for strength and coordination. Thirdly he will need speech therapy for swallow strengthening. 32 minutes spent in preparation of this discharge Condition: Stable - Instructions Diet, Activity, Other Instructions: Walk with rolling walker. Chopped diet with thin liquid until swelling of oral cavity improves. Patient can then be advanced to dysphagia whole diet. Remind patient to swallow with increased effort, 2-3 times, chin flexed, for each bite. Alternate solids and liquids and complete each meal with liguids. Home swallow therapy Referrals: Marcello Hill MD [Primary Care Provider] - Trent Jasso MD [Staff Physician] - Disposition: VNS/HOME HEALTH CARE - Home Medications Comprehensive Discharge Medication List: Ambulatory Orders Aspirin [Baby Aspirin] 81 mg PO DAILY 06/28/11 Cholecalciferol (Vitamin D3) [Vitamin D3 -] 0 unit PO DAILY 06/28/11 Lisinopril [Prinivil] 20 mg PO DAILY 06/28/11 Ropinirole HCl [Requip Xl] 4 mg PO BID 06/28/11 Simvastatin [Zocor] 20 mg PO DAILY 06/28/11 Propylthiouracil [Ptu -] 50 mg PO BID 07/13/11 Benztropine Mesylate [Cogentin -] 1 mg PO DAILY 04/06/16 Carbidopa/Levodopa/Entacapone [Ohmqpuohl-Gbconmol-Izon 200 mg] 1 each PO TID 11/13 Polyethylene Glycol [Polyox Wsr-301] 1 gm MC DAILY #30 powder 04/08/16 Ranitidine [Zantac -] 150 mg PO BID #60 tablet 04/08/16 Bacitracin - [Bacitracin Topical Ointment -] 1 applic TP BID #1 tube 06/06/17 Sodium Chloride Nasal Lignum [[place] Lignum Nasal Lignum -] 2 spray NS BID #1 bottle 06/06/17 Walker [Ultra-Light Rollator] 1 each MC ASDIR #1 each 06/06/17
[2017-06-06] MEDS: ATORVASTATIN CA 10 MG TABLET (FP) PO SCH (21:30)
[2017-06-07] MEDS: CARBIDOP 50MG/LEVODOPA 200MG/ENTACAPONE 200MG TABLET PO SCH ×2 (06:46→14:14)
[2017-06-07] MEDS ORDERED: PT OWN MED DRAWER 7, Y5N ONE ×2 (09:35→14:12)
[2017-06-07] MEDS: ASPIRIN 81 MG CHEWABLE TABLETS PO SCH (09:39)
[2017-06-07] MEDS: BACITRACIN 15 GM TUBE TOPICAL OINTMENT TP SCH (09:39)
[2017-06-07] MEDS: POLYETHYLENE GLYCOL 3350 119 GM BTL PO SCH (09:40)
[2017-06-07] MEDS: RANITIDINE HCL 150 MG TABLET (FP) PO SCH (09:40)
[2017-06-07] MEDS: LISINOPRIL 20 MG TABLET (FP) PO SCH (09:40)
[2017-06-07] MEDS: BENZTROPINE MESYLATE 1 MG TABLET (FP) PO SCH (09:40)
[2017-06-07] MEDS: PROPYLTHIOURACIL 50 MG TABLET (UD) PO SCH (09:40)
[2017-06-07] MEDS: SODIUM CHLORIDE NASAL SPRAY 44 ML BOTTLE NS SCH (09:41)
[2017-06-07 11:51] VITALS: BP 107/72; PULSE 69; TEMP 97.4
--- NOTE | 2017-06-07 12:25 | PN ---
Progress Note, CHIEF ANALYTICS OFFICER - Note Progress Note: MBS reviewed with staff. Appreciate results of laryngoscopy. Per ENT:His larynx has diminished sensation and he did not cough despite directly tactile stimulation to arytenoids. +Pooling secretions in the pyriforms. - He is at risk for aspiration given these findings and aspiration precautions should be applied. Intermittent vocal wetness noted. Selected Entries 06/06/17 06/06/17 06/06/17 06:40 09:37 10:00 Breakfast 50% Supper Temperature 98.6 F 97.6 F 06/06/17 06/06/17 06/06/17 14:00 17:20 21:54 Breakfast Supper 50% Temperature 98.3 F 97.9 F 06/06/17 06/07/17 06/07/17 22:00 06:32 10:00 Breakfast 25% Supper Temperature 98 F 98.8 F 97.4 F L Swallowing therapy to continue upon discharge at [facility]. Presently pt is on pureed diet and nectar thick liquids. Repeat MBS as indicated.
== END 2017-06-07 14:42 | DRG 156 ==
LOC: JER 12:55 → J8W 19:44
PROVIDERS: ADMIT Internal Medicine; ATTEND Internal Medicine
PROC: 0CJS8ZZ Inspection of Larynx, Via Natural or Artificial Opening Endoscopic (ICD-10-PCS; principal; 2017-06-05)
DX: S02.2XXA Fracture of nasal bones, initial encounter for closed fracture (principal); S01.81XA Laceration without foreign body of other part of head, initial encounter; S05.10XA Contusion of eyeball and orbital tissues, unspecified eye, initial encounter; R26.89 Other abnormalities of gait and mobility; G20 Parkinson's disease; F02.80 Dementia in other diseases classified elsewhere, unspecified severity, without behavioral disturbance, psychotic disturbance, mood disturbance, and anxiety; I10 Essential (primary) hypertension; E78.5 Hyperlipidemia, unspecified; E05.80 Other thyrotoxicosis without thyrotoxic crisis or storm; Z87.891 Personal history of nicotine dependence; E78.00 Pure hypercholesterolemia, unspecified; R13.10 Dysphagia, unspecified; K57.90 Diverticulosis of intestine, part unspecified, without perforation or abscess without bleeding; W18.30XA Fall on same level, unspecified, initial encounter; Y92.093 Driveway of other non-institutional residence as the place of occurrence of the external cause
CPT/HCPCS: 36415; 70450-TC; 70486-TC; 71045-TC; 72125-TC; 73000-TC-LT-FY; 73030-TC-LT-FY; 74230-TC-FY; 80048; 80053; 81003; 81015; 82550; 82553; 83735; 84100; 84484; 85025; 85610; 86850; 86900; 86901; 87086; 90715; 92611-GN; 93005; 93010; 97116-GP; 97161-GP; 99283-25

== ENCOUNTER 2017-09-05 19:27 | Inpatient (IN) | payer OTHER, BC ==
--- NOTE | 2017-09-05 19:54 | PDOC ---
History of Present Illness - General History Source: Patient Exam Limitations: No Limitations - History of Present Illness Initial Comments: 09/05/17 20:11 The patient is an 87 year old male with a significant PMH of Parkinsons, HTN, hyperlipidemia, diverticulosis, microscopic hematuria, and hyperthyroidism who presents to the emergency department s/p fall prior to arrival. The patient reports tripping and falling at home, landing in a seated position. The patient denies hitting his head or LOC. He denies any pain or other complaints. The patient notes he has fallen once before and has a healed abrasion on his head. The patient denies chest pain, shortness of breath, headache and dizziness. Denies fever, chills, nausea, vomit, diarrhea and constipation. Denies dysuria, frequency, urgency and hematuria. Allergies: NKA Past surgical history: Right hemicolectomy. Social history: Occasional alcohol use. No reported cigarette or drug use. PCP: Dr. Hill <Berry Lewis - Last Filed: 09/05/17 22:04> - General History Source: Patient <Deandre Bradshaw - Last Filed: 09/06/17 19:17> - General Chief Complaint: Injury Stated Complaint: FALL Time Seen by Provider: 09/05/17 19:49 Past History <Berry Lewis - Last Filed: 09/05/17 22:04> - Past Medical History Anemia: No Asthma: No Cancer: No Cardiac Disorders: No CVA: No COPD: No CHF: No Dementia: No Diabetes: No GI Disorders: Yes (H/O COLONIC POLYPS, DIVERTICULOSIS) Disorders: Yes (MICROSCOPIC HEMATURIA) HTN: Yes Hypercholesterolemia: Yes Liver Disease: No Seizures: No Thyroid Disease: Yes (HYPERTHYROIDISM) - Surgical History Abdominal Surgery: (RIGHT HEMICOLECTOMY) Appendectomy: Yes (S/P HEMICOLECTOMY FOR APPENDICEAL ABCESS) Cardiac Surgery: No Cholecystectomy: No Lung Surgery: No Neurologic Surgery: No Orthopedic Surgery: No - Immunization History Td Vaccination: No Immunization Up to Date: No - Suicide/Smoking/Psychosocial Hx Smoking Status: No Smoking History: Never smoked Have you smoked in the past 12 months: No Number of Cigarettes Smoked Daily: 0 If you are a former smoker, when did you quit?: 1975 Information on smoking cessation initiated: No Hx Alcohol Use: Yes Drug/Substance Use Hx: No Substance Use Type: None Hx Substance Use Treatment: No <Deandre Bradshaw - Last Filed: 09/06/17 19:17> - Past Medical History Allergies/Adverse Reactions: Allergies Allergy/AdvReac Type Severity Reaction Status Date / Time No Known Allergies Allergy Verified 04/06/16 15:17 Home Medications: Ambulatory Orders Aspirin [Baby Aspirin] 81 mg PO DAILY 06/28/11 Cholecalciferol (Vitamin D3) [Vitamin D3 -] 0 unit PO DAILY 06/28/11 Lisinopril [Prinivil] 20 mg PO DAILY 06/28/11 Ropinirole HCl [Requip Xl] 4 mg PO BID 06/28/11 Simvastatin [Zocor] 20 mg PO DAILY 06/28/11 Propylthiouracil [Ptu -] 50 mg PO BID 07/13/11 Benztropine Mesylate [Cogentin -] 1 mg PO DAILY 04/06/16 Ranitidine [Zantac -] 150 mg PO BID #60 tablet 04/08/16 Carbidopa/Levodopa/Entacapone [Stalevo 50 Tablet] 1 each PO TID 09/06/17 Review of Systems - Review of Systems Able to Perform ROS?: Yes Comments:: 09/05/17 20:11 CONSTITUTIONAL: Absent: fever, chills, diaphoresis, generalized weakness, malaise, loss of appetite HEENT: Absent: rhinorrhea, nasal congestion, throat pain, throat swelling, difficulty swallowing, mouth swelling, ear pain, eye pain, visual Changes CARDIOVASCULAR: Absent: chest pain, syncope, palpitations, irregular heart rate, lightheadedness , peripheral edema RESPIRATORY: Absent: cough, shortness of breath, dyspnea with exertion, orthopnea, wheezing, stridor, hemoptysis GASTROINTESTINAL: Absent: abdominal pain, abdominal distension, nausea, vomiting, diarrhea, constipation, melena, hematochezia GENITOURINARY: Absent: dysuria, frequency, urgency, hesitancy, hematuria, flank pain, genital pain MUSCULOSKELETAL: Absent: myalgia, arthralgia, joint swelling SKIN: Absent: rash, itching, pallor HEMATOLOGIC/IMMUNOLOGIC: Absent: easy bleeding, easy bruising, lymphadenopathy, frequent infections ENDOCRINE: Absent: unexplained weight gain, unexplained weight loss, heat intolerance, cold intolerance NEUROLOGIC: Absent: headache, focal weakness or paresthesias, dizziness, unsteady gait, seizure, mental status changes, bladder or bowel incontinence PSYCHIATRIC: Absent: anxiety, depression, suicidal or homicidal ideation, hallucinations. <Berry Lewis - Last Filed: 09/05/17 22:04> *Physical Exam - Vital Signs Last Vital Signs Temp Pulse Resp BP Pulse Ox 98.5 F 86 18 116/78 95 09/05/17 19:44 09/05/17 19:44 09/05/17 19:44 09/05/17 19:44 09/05/17 19:44 - Physical Exam Comments: 09/05/17 20:11 GENERAL: Well developed, well nourished. Awake and alert. No acute distress. HEENT: (+) Healed abrasion to left frontal aspect of head. No bony deformities. Normocephalic, atraumatic. PERRLA, EOMI. No conjunctival pallor. Sclera are non- icteric. Moist mucous membranes. Oropharynx is clear. NECK: Supple. Full ROM. No JVD. Carotid pulses 2+ and symmetric, without bruits. No thyromegaly. No lymphadenopathy. CARDIOVASCULAR: Regular rate and rhythm. No murmurs, rubs, or gallops. Distal pulses are 2+ and symmetric. PULMONARY: No evidence of respiratory distress. Lungs clear to auscultation bilaterally. No wheezing, rales or rhonchi. ABDOMINAL: Soft. Non-tender. Non-distended. No rebound or guarding. No organomegaly. Normoactive bowel sounds. MUSCULOSKELETAL Normal range of motion at all joints. No bony deformities or tenderness. No CVA tenderness. EXTREMITIES: No cyanosis. No clubbing. No edema. No calf tenderness. SKIN: Warm and dry. Normal capillary refill. No rashes. No jaundice. NEUROLOGICAL: Alert, awake, appropriate. Cranial nerves 2-12 intact. No deficits to light touch and temperature in face, upper extremities and lower extremities. No motor deficits in the in face, upper extremities and lower extremities. Normoreflexic in the upper and lower extremities. Normal speech. Toes are downgoing bilaterally. PSYCHIATRIC: Cooperative. Good eye contact. Appropriate mood and affect. <Berry Lewis - Last Filed: 09/05/17 22:04> - Vital Signs Last Vital Signs Temp Pulse Resp BP Pulse Ox 98.5 F 86 18 116/78 95 09/05/17 19:44 09/05/17 19:44 09/05/17 19:44 09/05/17 19:44 09/05/17 19:44 <Deandre Bradshaw - Last Filed: 09/06/17 19:17> Heart Score/ECG Review #1 09/05/17 22:04 EKG done at 22:02 Vent rate 65 bpm Junctional rhythm with occasional and consecutive premature ventricular complexes Abnormal ECG <Berry Lewis - Last Filed: 09/05/17 22:04> ED Treatment Course - LABORATORY CBC & Chemistry Diagram: 09/05/17 20:36 09/05/17 20:36 <Berry Lewis - Last Filed: 09/05/17 22:04> - LABORATORY CBC & Chemistry Diagram: 09/06/17 06:10 09/06/17 06:10 <Deandre Bradshaw - Last Filed: 09/06/17 19:17> Medical Decision Making - Medical Decision Making 09/06/17 19:15 Dr. Bradshaw: The scribe's documentation has been prepared under my direction and personally reviewed by me in its entirery. I confirm that the note above accurately reflects all work, treatment, procedures, and medical decision making performed by me. 09/06/17 19:16 Pt family is concerned as pt lived by himself and is falling more frequently. Pt will be admitted for eventual evaluation for NH placement <Deandre Bradshaw - Last Filed: 09/06/17 19:17> *DC/Admit/Observation/Transfer - Attestations Scribe Attestion: 09/05/17 20:11 Documentation prepared by Berry Lewis, acting as medical billing assistant for Deandre Bradshaw DO. <Berry Lewis - Last Filed: 09/05/17 22:04> - Discharge Dispostion Decision to Admit order: Yes <Deandre Bradshaw - Last Filed: 09/06/17 19:17> Diagnosis at time of Disposition: Parkinson disease, Recurrent falls, Gait abnormality - Discharge Dispostion Condition at time of disposition: Stable
[2017-09-05 20:59] LABS: BASO % 0.1 % (0-2.0); EOS % 0.4 % (0-4.5); HEMATOCRIT 33.6 % (35.4-49); HEMOGLOBIN 11.3 GM/dL (11.7-16.9); LYMPH % 8.1 % (8-40); MCH 29.9 pg (25.7-33.7); MCHC 33.6 g/dl (32.0-35.9); MEAN CELL VOLUME 88.9 fl (80-96); MEAN PLT VOLUME 8.4 fl (7.5-11.1); MONO % 9.1 % (3.8-10.2); NEUT % 82.3 % (42.8-82.8); PLATELET COUNT 128 K/MM3 (134-434); RBC 3.78 M/mm3 (4.00-5.60); RDW 14.4 % (11.9-15.9); WHITE BLOOD COUNT 8.5 K/mm3 (4.0-10.0)
[2017-09-05 21:03] LABS: PROTHROMBIN TIME (PATIENT) 11.3 SEC (9.7-13.0)
[2017-09-05 21:13] LABS: ALBUMIN 3.3 g/dl (3.4-5.0); ANION GAP 4 (8-16); BILIRUBIN,TOTAL 0.5 mg/dL (0.2-1.0); BLOOD UREA NITROGEN 20 mg/dL (7-18); CALCIUM 8.6 mg/dL (8.5-10.1); CHLORIDE 110 mmol/L (98-107); CO2 30 mmol/L (21-32); CREATININE 1.1 mg/dL (0.7-1.3); GLUCOSE,RANDOM 111 mg/dL (74-106); SGPT/ALT 11 U/L (12-78); SODIUM 144 mmol/L (136-145); TOT PROT 6.5 g/dl (6.4-8.2)
[2017-09-05 21:15] LABS: ALK PHOS 52 U/L (45-117)
[2017-09-05 21:16] LABS: POTASSIUM 3.9 mmol/L (3.5-5.1); SGOT/AST 20 U/L (15-37)
--- NOTE | 2017-09-06 00:05 | HP ---
CHIEF COMPLAINT: s/p fall today PCP: Qian HISTORY OF PRESENT ILLNESS: This is an 87 year old male with a significant past medical history of Parkinson 's disease who sustained a fall today. Pt reports his foot got stuck on the carpeting when he was turning around and he lost his balance. He denies any other recent fall. He has an abrasion to the top of his head which he states he sustained when he hit his head on the cabinet. ER course was notable for: (1) trop 0.06 (2) ECG without acute changes (3) CT head and c-spine unremarkable Recent Travel: pt denies PAST MEDICAL HISTORY: Parkinson's disease, hypertension, hyperlipidemia, diverticulosis, colon polyps , hyperthyroid, hematuria PAST SURGICAL HISTORY: partial colectomy due to appendiceal abscess Social History: Smoking: quit 1975 Alcohol: occ beer once a day Drugs: pt denies Family History: mother in her 70s, lymphoma father age 83, [place], unk type Allergies No Known Allergies Allergy (Verified 04/06/16 15:17) HOME MEDICATIONS: 3 Medication Instructions Recorded Aspirin [Baby Aspirin] 81 mg PO DAILY 06/28/11 Cholecalciferol (Vitamin D3) 0 unit PO DAILY 06/28/11 [Vitamin D3 -] Lisinopril [Prinivil] 20 mg PO DAILY 06/28/11 Ropinirole HCl [Requip Xl] 4 mg PO BID 06/28/11 Simvastatin [Zocor] 20 mg PO DAILY 06/28/11 Propylthiouracil [Ptu -] 50 mg PO BID 07/13/11 Benztropine Mesylate [Cogentin -] 1 mg PO DAILY 04/06/16 Ranitidine [Zantac -] 150 mg PO BID #60 tablet 04/08/16 Carbidopa/Levodopa/Entacapone 1 each PO TID 09/06/17 [Stalevo 50 Tablet] REVIEW OF SYSTEMS CONSTITUTIONAL: Absent: fever, chills, diaphoresis, generalized weakness, malaise, loss of appetite, weight change HEENT: Absent: rhinorrhea, nasal congestion, throat pain, throat swelling, difficulty swallowing, mouth swelling, ear pain, eye pain, visual changes CARDIOVASCULAR: Absent: chest pain, syncope, palpitations, irregular heart rate, lightheadedness , peripheral edema RESPIRATORY: Absent: cough, shortness of breath, dyspnea with exertion, orthopnea, wheezing, stridor, hemoptysis GASTROINTESTINAL: Absent: abdominal pain, abdominal distension, nausea, vomiting, diarrhea, constipation, melena, hematochezia GENITOURINARY: Absent: dysuria, frequency, urgency, hesitancy, hematuria, flank pain, genital pain MUSCULOSKELETAL: Present: s/p fall today Absent: myalgia, arthralgia, joint swelling, back pain, neck pain SKIN: Absent: rash, itching, pallor HEMATOLOGIC/IMMUNOLOGIC: Absent: easy bleeding, easy bruising, lymphadenopathy, frequent infections ENDOCRINE: Absent: unexplained weight gain, unexplained weight loss, heat intolerance, cold intolerance NEUROLOGIC: Absent: headache, focal weakness or paresthesias, dizziness, unsteady gait, seizure, mental status changes, bladder or bowel incontinence PSYCHIATRIC: Absent: anxiety, depression, suicidal or homicidal ideation, hallucinations. PHYSICAL EXAMINATION Vital Signs - 24 hr 3 09/05/17 19:44 Temperature 98.5 F Pulse Rate 86 Respiratory 18 Rate Blood Pressure 116/78 O2 Sat by Pulse 95 Oximetry (%) GENERAL: Awake, alert, and fully oriented, in no acute distress. HEAD: Normal with no signs of trauma. EYES: Pupils equal, round and reactive to light, extraocular movements intact, sclera anicteric, conjunctiva clear. No lid lag. EARS, NOSE, THROAT: Ears normal, nares patent, oropharynx clear without exudates. Moist mucous membranes. NECK: Normal range of motion, supple without lymphadenopathy, JVD, or masses. LUNGS: Breath sounds equal, clear to auscultation bilaterally. No wheezes, and no crackles. No accessory muscle use. HEART: Regular rate and rhythm, normal S1 and S2 without murmur, rub or gallop. ABDOMEN: Soft, nontender, not distended, normoactive bowel sounds, no guarding, no rebound, no masses. No hepatomegaly or splenomegaly. MUSCULOSKELETAL: Normal range of motion at all joints. No bony deformities or tenderness. No CVA tenderness. rigidity noted UPPER EXTREMITIES: 2+ pulses, warm, well-perfused. No cyanosis. No clubbing. No peripheral edema. LOWER EXTREMITIES: 2+ pulses, warm, well-perfused. No calf tenderness. 2+ peripheral edema. NEUROLOGICAL: Cranial nerves II-XII intact. Normal speech. GAit not observed PSYCHIATRIC: Cooperative. Good eye contact. Appropriate mood and affect. SKIN: Warm, dry, normal turgor, no rashes or lesions noted, normal capillary refill. Laboratory Results - last 24 hr 3 09/05/17 09/05/17 09/05/17 20:36 20:36 20:36 WBC 8.5 RBC 3.78 L Hgb 11.3 L D Hct 33.6 L MCV 88.9 MCH 29.9 MCHC 33.6 RDW 14.4 Plt Count 128 L MPV 8.4 Neutrophils % 82.3 Lymphocytes % 8.1 D Monocytes % 9.1 Eosinophils % 0.4 D Basophils % 0.1 PT with INR 11.30 INR 1.00 Sodium 144 Potassium 3.9 Chloride 110 H Carbon Dioxide 30 Anion Gap 4 L BUN 20 H Creatinine 1.1 D Creat Clearance w eGFR > 60 Random Glucose 111 H D Calcium 8.6 Total Bilirubin 0.5 D AST 20 ALT 11 L D Alkaline Phosphatase 52 Creatine Kinase 295 Creatine Kinase Index 1.7 CK-MB (CK-2) 5.272 H Troponin I 0.06 H D Total Protein 6.5 Albumin 3.3 L ECG sinus rhythm with sinus arrhythmia with 1st degree AV block vent rate 60, QTC [address]/T wave changes Radiology Reports CT head noncontrast Impression: Moderate atrophy. No gross evidence of a focal intracranial lesion or hemorrhage is seen. Stable focal low-attenuation lesion again seen in the right parietal bone, posteriorly. Differential diagnosis includes a hemangioma, among other possibilities. Reported By: Lakshmi Diaz MD 09/05/172142 CT c-spine noncontrast IMPRESSION: No significant interval change. The alignment is satisfactory. No gross fracture, subluxation or jumped facets are identified. Reported By: Lakshmi Diaz MD 09/05/172142 CXR portable Impression: Mild cardiomegaly without evidence of acute lung disease. Linear pleural calcification over the right hemidiaphragm suggestive of prior asbestos exposure. Correlate clinically Reported By: Lakshmi Diaz MD 09/05/172123 ASSESSMENT/PLAN: 87yM with PMH Parkinson's disease, hypertension, hyperlipidemia, diverticulosis , colon polyps, hyperthyroid, hematuria presented to the ED s/p fall. Mild elevation in troponin - no chest pain, no SOB, will trend - cardiology consult if trending up B/L LE edema - ? CHF, no history in past - BNP ordered for am, would obtain echo if elevated - elevation for now, will hold on diuretics as lungs clear - denies leg pain Parkinson's disease with recent fall - neuro consult for possible medication adjustment, family requested [facility] as they have an appointment in a few weeks - cont home meds for now - currently receiving PT at home after recent SNF discharge - PT eval HTN/HLD - cont home lisinopril. Home zocor changed to formulary lipitor hyperthyroid - cont home meds, check TSH. DVT PPX - heparin deferred as anticipated LOS <48h FEN - tolerating po, hold IVF given edema - BMP in am - low sodium diet as tolerated Dispo: Pt currently requires further observation for management of his emergent condition Visit type - Emergency Visit Emergency Visit: Yes ED Registration Date: 09/05/17 Care time: The patient presented to the Emergency Department on the above date and was hospitalized for further evaluation of their emergent condition. - New Patient This patient is new to me today: Yes Date on this admission: 09/05/17 - Critical Care Critical Care patient: No Hospitalist Screening - Colonoscopy Questionnaire Colonoscopy Questionnaire: Colonoscopy Questionnaire - Patient: 50 - 75 years old and never had a screening colonoscopy: No History of colon or rectal polyps, or CA: Yes History of IBD, Crohn's disease or UC: No History of abdominal radiation therapy as a child: No - Relative: 1 with colon or rectal CA, or polyps at age 60 or younger: No Colon or rectal CA diagnosed at age 45 or younger: No Multiple relatives with colon or rectal CA: No - Outcome: Screening Result: Positive Screen
[2017-09-06] MEDS ORDERED: [UNRECOGNIZED DRUG - OTHER] PO SCH (06:00)
[2017-09-06] MEDS ORDERED: CARBIDOPA PO SCH (06:00)
[2017-09-06 07:36] LABS: BASO % 0.3 % (0-2.0); EOS % 1.5 % (0-4.5); HEMATOCRIT 33.7 % (35.4-49); HEMOGLOBIN 11.3 GM/dL (11.7-16.9); LYMPH % 17.3 % (8-40); MCH 29.9 pg (25.7-33.7); MCHC 33.7 g/dl (32.0-35.9); MEAN PLT VOLUME 8.3 fl (7.5-11.1); MONO % 9.7 % (3.8-10.2); NEUT % 71.2 % (42.8-82.8); PLATELET COUNT 121 K/MM3 (134-434); RBC 3.79 M/mm3 (4.00-5.60); RDW 14.7 % (11.9-15.9); WHITE BLOOD COUNT 7.3 K/mm3 (4.0-10.0)
[2017-09-06 07:37] LABS: ANION GAP 8 (8-16); BLOOD UREA NITROGEN 16 mg/dL (7-18); CHLORIDE 108 mmol/L (98-107); CO2 28 mmol/L (21-32); CREATININE 0.8 mg/dL (0.7-1.3); GLUCOSE,RANDOM 86 mg/dL (74-106); SODIUM 144 mmol/L (136-145)
[2017-09-06 07:38] LABS: CALCIUM 9.3 mg/dL (8.5-10.1); MAGNESIUM 2.4 mg/dL (1.8-2.4); PHOSPHOROUS 2.8 mg/dL (2.5-4.9)
[2017-09-06] MEDS ORDERED: CARBIDOPA/LEVODOPA 25/100 TABLET (FP) PO SCH (09:00)
[2017-09-06] MEDS ORDERED: ENTACAPONE 200 MG TABLET PO SCH (09:00)
--- NOTE | 2017-09-06 09:45 | CONSULT ---
Consult - text type - Consultation Consultation Note: Neurology HISTORY OF PRESENT ILLNESS: This is an 87 year old male with Parkinson's disease, hypertension, hyperlipidemia, diverticulosis, colon polyps, hyperthyroid, hematuria who sustained a fall prompting his admission . Reportedly got his foot got stuck on the carpeting when he was turning around and he lost his balance. He denies any other recent fall. Ct head completed and without acute changes. C spine CT also stable. Previously was seeing Dr. Arthur but family had requested me to consult. Medication regiement includes Stalevo, Ropinerole, and Benztropine. In ER and stable appearing, minimal cogwheeling, but does have bradykinesia. Does not appear to have significant decline and stable appearing. Would not make signficant change at this time and possibly mechanical fall. Recent Travel: pt denies PAST MEDICAL HISTORY: Parkinson's disease, hypertension, hyperlipidemia, diverticulosis, colon polyps , hyperthyroid, hematuria PAST SURGICAL HISTORY: partial colectomy due to appendiceal abscess Social History: Smoking: quit 1975 Alcohol: occ beer once a day Drugs: pt denies Family History: mother in her 70s, lymphoma father age 83, [place], unk type Allergies No Known Allergies Allergy (Verified 04/06/16 15:17) HOME MEDICATIONS: 3 Medication Instructions Recorded Aspirin [Baby Aspirin] 81 mg PO DAILY 06/28/11 Cholecalciferol (Vitamin D3) 0 unit PO DAILY 06/28/11 [Vitamin D3 -] Lisinopril [Prinivil] 20 mg PO DAILY 06/28/11 Ropinirole HCl [Requip Xl] 4 mg PO BID 06/28/11 Simvastatin [Zocor] 20 mg PO DAILY 06/28/11 Propylthiouracil [Ptu -] 50 mg PO BID 07/13/11 Benztropine Mesylate [Cogentin -] 1 mg PO DAILY 04/06/16 Ranitidine [Zantac -] 150 mg PO BID #60 tablet 04/08/16 Carbidopa/Levodopa/Entacapone 1 each PO TID 09/06/17 [Stalevo 50 Tablet] REVIEW OF SYSTEMS CONSTITUTIONAL: Absent: fever, chills, diaphoresis, generalized weakness, malaise, loss of appetite, weight change HEENT: Absent: rhinorrhea, nasal congestion, throat pain, throat swelling, difficulty swallowing, mouth swelling, ear pain, eye pain, visual changes CARDIOVASCULAR: Absent: chest pain, syncope, palpitations, irregular heart rate, lightheadedness , peripheral edema RESPIRATORY: Absent: cough, shortness of breath, dyspnea with exertion, orthopnea, wheezing, stridor, hemoptysis GASTROINTESTINAL: Absent: abdominal pain, abdominal distension, nausea, vomiting, diarrhea, constipation, melena, hematochezia GENITOURINARY: Absent: dysuria, frequency, urgency, hesitancy, hematuria, flank pain, genital pain MUSCULOSKELETAL: Present: s/p fall Absent: myalgia, arthralgia, joint swelling, back pain, neck pain SKIN: Absent: rash, itching, pallor HEMATOLOGIC/IMMUNOLOGIC: Absent: easy bleeding, easy bruising, lymphadenopathy, frequent infections ENDOCRINE: Absent: unexplained weight gain, unexplained weight loss, heat intolerance, cold intolerance NEUROLOGIC: Absent: headache, focal weakness or paresthesias, dizziness, unsteady gait, seizure, mental status changes, bladder or bowel incontinence PSYCHIATRIC: Absent: anxiety, depression, suicidal or homicidal ideation, hallucinations. Vital Signs Period Temp Pulse Resp BP Sys/Bran Pulse Ox Last 24 Hr 98.5 F 61-86 18-18 116-127/60-78 95-99 GENERAL: Awake, alert, and fully oriented, in no acute distress. HEAD: Normal with no signs of trauma. EYES: Pupils equal, round and reactive to light, extraocular movements intact, sclera anicteric, conjunctiva clear. No lid lag. EARS, NOSE, THROAT: Ears normal, nares patent, oropharynx clear without exudates. Moist mucous membranes. NECK: Normal range of motion, supple without lymphadenopathy, JVD, or masses. LUNGS: Breath sounds equal, clear to auscultation bilaterally. No wheezes, and no crackles. No accessory muscle use. HEART: Regular rate and rhythm, normal S1 and S2 without murmur, rub or gallop. ABDOMEN: Soft, nontender, not distended, normoactive bowel sounds, no guarding, no rebound, no masses. No hepatomegaly or splenomegaly. MUSCULOSKELETAL: Normal range of motion at all joints. No bony deformities or tenderness. No CVA tenderness. rigidity noted UPPER EXTREMITIES: 2+ pulses, warm, well-perfused. No cyanosis. No clubbing. No peripheral edema. LOWER EXTREMITIES: 2+ pulses, warm, well-perfused. No calf tenderness. 2+ peripheral edema. NEUROLOGICAL: Cranial nerves II-XII intact. Hypophonic speech, sensory intact, minimal cogwheeling, bradykinesia noted, gait deferred PSYCHIATRIC: Cooperative. Good eye contact. Appropriate mood and affect. SKIN: Warm, dry, normal turgor, no rashes or lesions noted, normal capillary refill. CBCD WBC 7.3 K/mm3 (4.0-10.0) 09/06/17 06:10 RBC 3.79 M/mm3 (4.00-5.60) L 09/06/17 06:10 Hgb 11.3 GM/dL (11.7-16.9) L 09/06/17 06:10 Hct 33.7 % (35.4-49) L 09/06/17 06:10 MCV 89.0 fl (80-96) 09/06/17 06:10 MCHC 33.7 g/dl (32.0-35.9) 09/06/17 06:10 RDW 14.7 % (11.9-15.9) 09/06/17 06:10 Plt Count 121 K/MM3 (134-434) L 09/06/17 06:10 MPV 8.3 fl (7.5-11.1) 09/06/17 06:10 CMP Sodium 144 mmol/L (136-145) 09/06/17 06:10 Potassium 4.0 mmol/L (3.5-5.1) 09/06/17 06:10 Chloride 108 mmol/L (98-107) H 09/06/17 06:10 Carbon Dioxide 28 mmol/L (21-32) 09/06/17 06:10 Anion Gap 8 (8-16) 09/06/17 06:10 BUN 16 mg/dL (7-18) 09/06/17 06:10 Creatinine 0.8 mg/dL (0.7-1.3) D 09/06/17 06:10 Creat Clearance w eGFR > 60 (>60) 09/05/17 20:36 Random Glucose 86 mg/dL (74-106) D 09/06/17 06:10 Calcium 9.3 mg/dL (8.5-10.1) 09/06/17 06:10 Total Bilirubin 0.5 mg/dL (0.2-1.0) D 09/05/17 20:36 AST 20 U/L (15-37) 09/05/17 20:36 ALT 11 U/L (12-78) L D 09/05/17 20:36 Alkaline Phosphatase 52 U/L (45-117) 09/05/17 20:36 Total Protein 6.5 g/dl (6.4-8.2) 09/05/17 20:36 Albumin 3.3 g/dl (3.4-5.0) L 09/05/17 20:36 CARDIAC ENZYMES Creatine Kinase 295 IU/L (39-308) 09/05/17 20:36 Troponin I 0.12 ng/ml (0.00-0.05) H D 09/06/17 06:10 ECG sinus rhythm with sinus arrhythmia with 1st degree AV block vent rate 60, QTC [address]/T wave changes Radiology Reports CT head noncontrast Impression: Moderate atrophy. No gross evidence of a focal intracranial lesion or hemorrhage is seen. Stable focal low-attenuation lesion again seen in the right parietal bone, posteriorly. Differential diagnosis includes a hemangioma, among other possibilities. CT c-spine noncontrast IMPRESSION: No significant interval change. The alignment is satisfactory. No gross fracture, subluxation or jumped facets are identified. CXR portable Impression: Mild cardiomegaly without evidence of acute lung disease. Linear pleural calcification over the right hemidiaphragm suggestive of prior asbestos exposure. Correlate clinically ASSESSMENT/PLAN: 87 year old male with Parkinson's disease, hypertension, hyperlipidemia, diverticulosis, colon polyps, hyperthyroid, hematuria who sustained a fall prompting his admission . Reportedly got his foot got stuck on the carpeting when he was turning around and he lost his balance. He denies any other recent fall. Ct head completed and without acute changes. C spine CT also stable. Previously was seeing Dr. Arthur but family had requested me to consult. Medication regiement includes Stalevo, Ropinerole, and Benztropine. In ER and stable appearing, minimal cogwheeling, but does have bradykinesia. Does not appear to have significant decline and stable appearing. Would not make signficant change at this time and possibly mechanical fall. Fall precautions, physical therapy. Cont home lisinopril, Statin for hyperlipidemia, not likely statin induced myopathy. DVT ppx.
[2017-09-06] MEDS: ASPIRIN 81 MG CHEWABLE TABLETS PO SCH (09:55)
[2017-09-06] MEDS: PROPYLTHIOURACIL 50 MG TABLET (UD) PO SCH ×2 (09:55→23:05)
[2017-09-06] MEDS: LISINOPRIL 20 MG TABLET (FP) PO SCH (09:55)
[2017-09-06] MEDS: BENZTROPINE MESYLATE 1 MG TABLET (FP) PO SCH (09:55)
[2017-09-06] MEDS: RANITIDINE HCL 150 MG TABLET (FP) PO SCH ×2 (09:55→23:03)
[2017-09-06] MEDS: CHOLECALCIFEROL (VITAMIN D3) 1,000 UNIT TABLET (FP) PO SCH (09:55)
--- NOTE | 2017-09-06 12:00 | EKG ---
Test Reason : Blood Pressure : / mmHG Vent. Rate : 060 BPM Atrial Rate : 060 BPM P-R Int : 210 ms QRS Dur : 090 ms QT Int : 426 ms P-R-T Axes : 076 005 -02 degrees QTc Int : 426 ms SINUS RHYTHM WITH SINUS ARRHYTHMIA WITH 1ST DEGREE A-V BLOCK OTHERWISE NORMAL ECG WHEN COMPARED WITH ECG OF 05-SEP-2017 22:02, SINUS RHYTHM HAS REPLACED JUNCTIONAL RHYTHM Confirmed by ATIYA CARRASCO, BRAYAN ([id number]) on 09/06/2017 12:00:22 PM Referred By: Confirmed By:BRAYAN RAJPUT MD
--- NOTE | 2017-09-06 12:28 | CON.CARD ---
Cardiology Consult (text) - Consultation Consultation Note: cc: fall hpi: 87 m hx parkinsons, htn, hld here s/p fall. Pt says his foot got caught on carpet and he tripped. No prodrome sxs. No syncope. No cp, sob, palps, dizzy, loc, pnd, orthopnea, le edema. Feels well now, wants to go home. pmh: per hpi psh: hemicolectomy social: no tob fam: nc ros: per hpi; no nvd, fever, gib, hematuria, dysuria, muscle pain, decker meds: Home Medications Medication Instructions Recorded Aspirin [Baby Aspirin] 81 mg PO DAILY 06/28/11 Cholecalciferol (Vitamin D3) 0 unit PO DAILY 06/28/11 [Vitamin D3 -] Lisinopril [Prinivil] 20 mg PO DAILY 06/28/11 Ropinirole HCl [Requip Xl] 4 mg PO BID 06/28/11 Simvastatin [Zocor] 20 mg PO DAILY 06/28/11 Propylthiouracil [Ptu -] 50 mg PO BID 07/13/11 Benztropine Mesylate [Cogentin -] 1 mg PO DAILY 04/06/16 Ranitidine [Zantac -] 150 mg PO BID #60 tablet 04/08/16 Carbidopa/Levodopa/Entacapone 1 each PO TID 09/06/17 [Stalevo 50 Tablet] pe: Vital Signs Period Temp Pulse Resp BP Sys/Bran Pulse Ox Last 24 Hr 98.5 F 61-86 18-18 116-127/60-78 95-99 nad no jvd rrr s1s2 no mrg cta bl nl eff aaox3 trace le edema bl, no c/c abd nt nd pos bs no jaundice diaphoresis pos dp pt no carotid bruits Laboratory Last Values WBC 7.3 K/mm3 (4.0-10.0) 09/06/17 06:10 RBC 3.79 M/mm3 (4.00-5.60) L 09/06/17 06:10 Hgb 11.3 GM/dL (11.7-16.9) L 09/06/17 06:10 Hct 33.7 % (35.4-49) L 09/06/17 06:10 MCV 89.0 fl (80-96) 09/06/17 06:10 MCH 29.9 pg (25.7-33.7) 09/06/17 06:10 MCHC 33.7 g/dl (32.0-35.9) 09/06/17 06:10 RDW 14.7 % (11.9-15.9) 09/06/17 06:10 Plt Count 121 K/MM3 (134-434) L 09/06/17 06:10 MPV 8.3 fl (7.5-11.1) 09/06/17 06:10 Neutrophils % 71.2 % (42.8-82.8) 09/06/17 06:10 Lymphocytes % 17.3 % (8-40) D 09/06/17 06:10 Monocytes % 9.7 % (3.8-10.2) 09/06/17 06:10 Eosinophils % 1.5 % (0-4.5) D 09/06/17 06:10 Basophils % 0.3 % (0-2.0) 09/06/17 06:10 PT with INR 11.30 SEC (9.7-13.0) 09/05/17 20:36 INR 1.00 (0.82-1.09) 09/05/17 20:36 Sodium 144 mmol/L (136-145) 09/06/17 06:10 Potassium 4.0 mmol/L (3.5-5.1) 09/06/17 06:10 Chloride 108 mmol/L (98-107) H 09/06/17 06:10 Carbon Dioxide 28 mmol/L (21-32) 09/06/17 06:10 Anion Gap 8 (8-16) 09/06/17 06:10 BUN 16 mg/dL (7-18) 09/06/17 06:10 Creatinine 0.8 mg/dL (0.7-1.3) D 09/06/17 06:10 Creat Clearance w eGFR > 60 (>60) 09/05/17 20:36 Random Glucose 86 mg/dL (74-106) D 09/06/17 06:10 Calcium 9.3 mg/dL (8.5-10.1) 09/06/17 06:10 Phosphorus 2.8 mg/dL (2.5-4.9) D 09/06/17 06:10 Magnesium 2.4 mg/dL (1.8-2.4) 09/06/17 06:10 Total Bilirubin 0.5 mg/dL (0.2-1.0) D 09/05/17 20:36 AST 20 U/L (15-37) 09/05/17 20:36 ALT 11 U/L (12-78) L D 09/05/17 20:36 Alkaline Phosphatase 52 U/L (45-117) 09/05/17 20:36 Creatine Kinase 295 IU/L (39-308) 09/05/17 20:36 Creatine Kinase Index 1.7 % (0.0-5.0) 09/05/17 20:36 CK-MB (CK-2) 5.272 ng/mL (0.5-3.6) H 09/05/17 20:36 Troponin I 0.12 ng/ml (0.00-0.05) H D 09/06/17 06:10 B-Natriuretic Peptide 1082.57 pg/ml (5-450) H 09/06/17 06:10 Total Protein 6.5 g/dl (6.4-8.2) 09/05/17 20:36 Albumin 3.3 g/dl (3.4-5.0) L 09/05/17 20:36 ecg: sr, nl intervals, no ischemic changes cxr: no chf echo 10/2013: tds; mild lvh, nl lv/rv, no sig valve path a/p: 87 m hx parkinsons, htn, hld here s/p fall. fall: -mechanical in nature, no indication of cardiac etiology htn: -continue home med hld: -cont statin trop elevation: -borderline trop elevation with nl %mb, flat trend so far. ecg unremarkable. no cardiac sxs. likely a non specific finding, not c/w acs. would check third set and if remains in borderline range then nothing further to do at this time and ok for dc.
[2017-09-06 13:56] VITALS: BMI 23.0
[2017-09-06] MEDS: ENTACAPONE 200 MG TABLET PO SCH ×2 (14:16→23:03)
[2017-09-06] MEDS: CARBIDOPA/LEVODOPA 25/100 TABLET (FP) PO SCH ×2 (14:17→23:20)
--- NOTE | 2017-09-06 15:50 | PN ---
Progress Note, Physician Chief Complaint: Pt lying in stretcher in no acute distress. Reports he slipped at home and fell. Denies any chest pain, sob, n/v/d - Current Medication List Current Medications: Active Medications Aspirin (Asa -) 81 mg PO DAILY [facility] Last Admin: 09/06/17 09:55 Dose: 81 mg Atorvastatin Calcium (Lipitor -) 10 mg PO [facility] Benztropine Mesylate (Cogentin -) 1 mg PO DAILY [facility] Last Admin: 09/06/17 09:55 Dose: 1 mg Carbidopa/Levodopa (Sinemet 25/100 -) 0.5 each PO TID [facility] Stop: 09/07/17 06:01 Last Admin: 09/06/17 14:17 Dose: 0.5 each Carbidopa/Levodopa/Entacapone (Stalevo 50 -) 1 tab PO TID [facility] Cholecalciferol (Vitamin D3 -) 1,000 unit PO DAILY [facility] Last Admin: 09/06/17 09:55 Dose: 1,000 unit Entacapone (Comtan -) 200 mg PO TID [facility] Stop: 09/07/17 06:01 Last Admin: 09/06/17 14:16 Dose: 200 mg Lisinopril (Prinivil) 20 mg PO DAILY [facility] Last Admin: 09/06/17 09:55 Dose: 20 mg Non-Formulary Medication (Ropinirole Hcl [Requip Xl]) 4 mg PO BID [facility] Propylthiouracil (Ptu -) 50 mg PO BID [facility] Last Admin: 09/06/17 09:55 Dose: 50 mg Ranitidine HCl (Zantac -) 150 mg PO BID [facility] Last Admin: 09/06/17 09:55 Dose: 150 mg - Objective Vital Signs: Vital Signs Temperature 98.5 F 09/05/17 19:44 Pulse Rate 66 09/06/17 13:30 Respiratory Rate 18 09/06/17 13:30 Blood Pressure 110/57 09/06/17 13:30 O2 Sat by Pulse Oximetry (%) 98 09/06/17 13:30 Constitutional: Yes: Well Nourished, No Distress, Calm Cardiovascular: Yes: WNL, Regular Rate and Rhythm. No: Murmur, Rub Respiratory: Yes: WNL, Regular, CTA Bilaterally, Diminished Gastrointestinal: Yes: WNL, Normal Bowel Sounds, Soft. No: Distention, Tenderness Edema: Yes Edema: LLE: 1+, RLE: 1+ Neurological: Yes: Alert, Oriented, Other (bradykinesia) Psychiatric: Yes: WNL, Alert, Oriented Labs: CBC, BMP 09/06/17 06:10 09/06/17 06:10 INR, PTT INR 1.00 (0.82-1.09) 09/05/17 20:36 Problem List - Problems (1) Recurrent falls Assessment/Plan: s/p acute fall at home, mechanical all imaging negative ambulated 55 ft w/ PT but requires assistance with ambulation/transfers continue PT fall precautions SNF placement Code(s): R29.6 - REPEATED FALLS (2) Parkinson disease Assessment/Plan: stable evaluated by neurology continue stalevo, sinemet, requip, cogentin dysphagia puree diet- evaluated by speech in 06/18 honey nectar thick liquids PT fall precautions neuro following Code(s): G20 - PARKINSON'S DISEASE (3) Elevated troponin Assessment/Plan: trend down ekg unremarkable evaluated by cardiology and ACS r/o Code(s): R74.8 - ABNORMAL LEVELS OF OTHER SERUM ENZYMES (4) HTN (hypertension) Assessment/Plan: controlled continue lisinopril Code(s): I10 - ESSENTIAL (PRIMARY) HYPERTENSION Qualifiers: Hypertension type: essential hypertension Qualified Code(s): I10 - Essential (primary) hypertension (5) Hyperlipemia Assessment/Plan: chronic continue statin Code(s): E78.5 - HYPERLIPIDEMIA, UNSPECIFIED (6) Hyperthyroidism Assessment/Plan: tsh wnl continue PTU Code(s): E05.90 - THYROTOXICOSIS, UNSP WITHOUT THYROTOXIC CRISIS OR STORM Assessment/Plan Dispo: UNSAFE DISCHARGE HOME. Pt only receives 2 hours of aide at home, family lives far and unable to provide provide further assistance. Discussed with daughter at bedside. Daughter reports she prefers dad to go to SNF. CM/SW informed of dispo plan.
[2017-09-06] MEDS: ATORVASTATIN CA 10 MG TABLET (FP) PO SCH (23:03)
[2017-09-07] MEDS: CARBIDOPA/LEVODOPA 25/100 TABLET (FP) PO SCH (06:28)
[2017-09-07] MEDS: ENTACAPONE 200 MG TABLET PO SCH (06:29)
--- NOTE | 2017-09-07 09:34 | PN ---
Progress Note (short form) - Note Progress Note: Neurology HISTORY OF PRESENT ILLNESS: This is an 87 year old male with Parkinson's disease, hypertension, hyperlipidemia, diverticulosis, colon polyps, hyperthyroid, hematuria who sustained a fall prompting his admission . Reportedly got his foot got stuck on the carpeting when he was turning around and he lost his balance. He denies any other recent fall. Ct head completed and without acute changes. C spine CT also stable. Previously was seeing Dr. Arthur but family had requested me to consult. Medication regiement includes Stalevo, Ropinerole, and Benztropine. Seen at bedside today and stable appearing, minimal cogwheeling, but does have bradykinesia and hypophonic. Does not appear to have significant decline and stable appearing. Would not make signficant change at this time and possibly mechanical fall. Discussed with team yesterday and again with patient this morning, both in agreement. Vital Signs Period Temp Pulse Resp BP Sys/Bran Pulse Ox Last 24 Hr 97.2 F-99.2 F 58-74 18-20 110-145/57-80 98-98 GENERAL: Awake, alert, and fully oriented, in no acute distress. HEAD: Normal with no signs of trauma. EYES: Pupils equal, round and reactive to light, extraocular movements intact, sclera anicteric, conjunctiva clear. No lid lag. EARS, NOSE, THROAT: Ears normal, nares patent, oropharynx clear without exudates. Moist mucous membranes. NECK: Normal range of motion, supple without lymphadenopathy, JVD, or masses. LUNGS: Breath sounds equal, clear to auscultation bilaterally. No wheezes, and no crackles. No accessory muscle use. HEART: Regular rate and rhythm, normal S1 and S2 without murmur, rub or gallop. ABDOMEN: Soft, nontender, not distended, normoactive bowel sounds, no guarding, no rebound, no masses. No hepatomegaly or splenomegaly. MUSCULOSKELETAL: Normal range of motion at all joints. No bony deformities or tenderness. No CVA tenderness. rigidity noted UPPER EXTREMITIES: 2+ pulses, warm, well-perfused. No cyanosis. No clubbing. No peripheral edema. LOWER EXTREMITIES: 2+ pulses, warm, well-perfused. No calf tenderness. 2+ peripheral edema. NEUROLOGICAL: Cranial nerves II-XII intact. Hypophonic speech, sensory intact, minimal cogwheeling, bradykinesia noted, gait deferred PSYCHIATRIC: Cooperative. Good eye contact. Appropriate mood and affect. SKIN: Warm, dry, normal turgor, no rashes or lesions noted, normal capillary refill. CBCD WBC 7.3 K/mm3 (4.0-10.0) 09/06/17 06:10 RBC 3.79 M/mm3 (4.00-5.60) L 09/06/17 06:10 Hgb 11.3 GM/dL (11.7-16.9) L 09/06/17 06:10 Hct 33.7 % (35.4-49) L 09/06/17 06:10 MCV 89.0 fl (80-96) 09/06/17 06:10 MCHC 33.7 g/dl (32.0-35.9) 09/06/17 06:10 RDW 14.7 % (11.9-15.9) 09/06/17 06:10 Plt Count 121 K/MM3 (134-434) L 09/06/17 06:10 MPV 8.3 fl (7.5-11.1) 09/06/17 06:10 CMP Sodium 144 mmol/L (136-145) 09/06/17 06:10 Potassium 4.0 mmol/L (3.5-5.1) 09/06/17 06:10 Chloride 108 mmol/L (98-107) H 09/06/17 06:10 Carbon Dioxide 28 mmol/L (21-32) 09/06/17 06:10 Anion Gap 8 (8-16) 09/06/17 06:10 BUN 16 mg/dL (7-18) 09/06/17 06:10 Creatinine 0.8 mg/dL (0.7-1.3) D 09/06/17 06:10 Creat Clearance w eGFR > 60 (>60) 09/05/17 20:36 Calcium 9.3 mg/dL (8.5-10.1) 09/06/17 06:10 Total Bilirubin 0.5 mg/dL (0.2-1.0) D 09/05/17 20:36 AST 20 U/L (15-37) 09/05/17 20:36 ALT 11 U/L (12-78) L D 09/05/17 20:36 Alkaline Phosphatase 52 U/L (45-117) 09/05/17 20:36 Total Protein 6.5 g/dl (6.4-8.2) 09/05/17 20:36 Albumin 3.3 g/dl (3.4-5.0) L 09/05/17 20:[address] head noncontrast Impression: Moderate atrophy. No gross evidence of a focal intracranial lesion or hemorrhage is seen. Stable focal low-attenuation lesion again seen in the right parietal bone, posteriorly. Differential diagnosis includes a hemangioma, among other possibilities. CT c-spine noncontrast IMPRESSION: No significant interval change. The alignment is satisfactory. No gross fracture, subluxation or jumped facets are identified. CXR portable Impression: Mild cardiomegaly without evidence of acute lung disease. Linear pleural calcification over the right hemidiaphragm suggestive of prior asbestos exposure. Correlate clinically ASSESSMENT/PLAN: 87 year old male with Parkinson's disease, hypertension, hyperlipidemia, diverticulosis, colon polyps, hyperthyroid, hematuria who sustained a fall prompting his admission . Reportedly got his foot got stuck on the carpeting when he was turning around and he lost his balance. He denies any other recent fall. Ct head completed and without acute changes. C spine CT also stable. Previously was seeing Dr. Arthur but family had requested me to consult. Medication regiement includes Stalevo, Ropinerole, and Benztropine. Remains stable appearing, minimal cogwheeling, but does have bradykinesia and hypophonic , consistent with Parkinson's Disease. Does not appear to have significant decline and stable appearing. Would not make signficant change at this time and possibly mechanical fall. Fall precautions, physical therapy. Consider rehab if qualifies and patient in agreement. Cont home lisinopril, Statin for hyperlipidemia, not likely statin induced myopathy. DVT ppx.
[2017-09-07] MEDS ORDERED: PT OWN MED DRAWER 7, Y5N ONE ×3 (09:39→21:10)
[2017-09-07] MEDS: RANITIDINE HCL 150 MG TABLET (FP) PO SCH ×2 (09:44→21:13)
[2017-09-07] MEDS: CHOLECALCIFEROL (VITAMIN D3) 1,000 UNIT TABLET (FP) PO SCH (09:44)
[2017-09-07] MEDS: LISINOPRIL 20 MG TABLET (FP) PO SCH (09:45)
[2017-09-07] MEDS: ASPIRIN 81 MG CHEWABLE TABLETS PO SCH (09:45)
[2017-09-07] MEDS: PROPYLTHIOURACIL 50 MG TABLET (UD) PO SCH ×2 (09:47→21:13)
[2017-09-07] MEDS: BENZTROPINE MESYLATE 1 MG TABLET (FP) PO SCH (09:47)
--- NOTE | 2017-09-07 10:11 | PN ---
Progress Note (short form) - Note Progress Note: s: no cp sob palps dizzy o: Vital Signs Period Temp Pulse Resp BP Sys/Bran Pulse Ox Last 24 Hr 97.2 F-99.2 F 58-74 18-20 110-145/57-80 98-98 nad no jvd rrr s1s2 no mrg cta bl nl eff aaox3 trace le edema bl, no c/c abd nt nd pos bs no jaundice diaphoresis Current Medications Generic Name Dose Route Start Last Admin Trade Name Bradley PRN Reason Stop Dose Admin Aspirin 81 mg 09/06/17 10:00 09/07/17 09:45 Asa - PO 81 mg DAILY ANDREW Administration Atorvastatin Calcium 10 mg 09/06/17 22:00 09/06/17 23:03 Lipitor - PO 10 mg HS ANDREW Administration Benztropine Mesylate 1 mg 09/06/17 10:00 09/07/17 09:47 Cogentin - PO 1 mg DAILY ANDREW Administration Carbidopa/Levodopa/Entacapone 1 tab 09/07/17 14:00 Stalevo 50 - PO TID ANDREW Cholecalciferol 1,000 unit 09/06/17 10:00 09/07/17 09:44 Vitamin D3 - PO 1,000 unit DAILY ANDREW Administration Lisinopril 20 mg 09/06/17 10:00 09/07/17 09:45 Prinivil PO 20 mg DAILY ANDREW Administration Non-Formulary Medication 4 mg 09/06/17 10:00 Ropinirole Hcl [Requip Xl] PO BID ANDREW Propylthiouracil 50 mg 09/06/17 10:00 09/07/17 09:47 Ptu - PO 50 mg BID ANDREW Administration Ranitidine HCl 150 mg 09/06/17 10:00 09/07/17 09:44 Zantac - PO 150 mg BID ANDREW Administration CBC, BMP 09/06/17 06:10 09/06/17 06:10 ecg: sr, nl intervals, no ischemic changes cxr: no chf echo 10/2013: tds; mild lvh, nl lv/rv, no sig valve path tele: sr, pacs a/p: 87 m hx parkinsons, htn, hld here s/p fall. fall: -mechanical in nature, no indication of cardiac etiology htn: -continue home med hld: -cont statin trop elevation: -borderline trop elevation with nl %mb, flat trend x3. ecg unremarkable. no cardiac sxs. likely a non specific finding, not c/w acs. stable for snf, dc tele
--- NOTE | 2017-09-07 10:20 | PN ---
Progress Note, Physician Chief Complaint: Pt lying in bbed in no acute distress. Denies any chest pain, sob, n/v/d - Current Medication List Current Medications: Active Medications Aspirin (Asa -) 81 mg PO DAILY [facility] Last Admin: 09/07/17 09:45 Dose: 81 mg Atorvastatin Calcium (Lipitor -) 10 mg PO HS [facility] Last Admin: 09/06/17 23:03 Dose: 10 mg Benztropine Mesylate (Cogentin -) 1 mg PO DAILY [facility] Last Admin: 09/07/17 09:47 Dose: 1 mg Carbidopa/Levodopa/Entacapone (Stalevo 50 -) 1 tab PO TID [facility] Cholecalciferol (Vitamin D3 -) 1,000 unit PO DAILY [facility] Last Admin: 09/07/17 09:44 Dose: 1,000 unit Lisinopril (Prinivil) 20 mg PO DAILY [facility] Last Admin: 09/07/17 09:45 Dose: 20 mg Non-Formulary Medication (Ropinirole Hcl [Requip Xl]) 4 mg PO BID [facility] Propylthiouracil (Ptu -) 50 mg PO BID [facility] Last Admin: 09/07/17 09:47 Dose: 50 mg Ranitidine HCl (Zantac -) 150 mg PO BID [facility] Last Admin: 09/07/17 09:44 Dose: 150 mg - Objective Vital Signs: Vital Signs Temperature 97.7 F 09/07/17 06:00 Pulse Rate 74 09/07/17 06:00 Respiratory Rate 18 09/07/17 06:00 Blood Pressure 141/72 09/07/17 06:00 O2 Sat by Pulse Oximetry (%) 98 09/06/17 23:00 Constitutional: Yes: Well Nourished, No Distress Cardiovascular: Yes: WNL, Regular Rate and Rhythm Respiratory: Yes: WNL, Regular, CTA Bilaterally. No: Accessory Muscle Use, SOB , Tachypnea Gastrointestinal: Yes: WNL, Normal Bowel Sounds, Soft. No: Distention, Tenderness Genitourinary: Yes: Incontinence Edema: No Neurological: Yes: Alert, Oriented, Other (bradykinesia) Psychiatric: Yes: WNL, Alert, Oriented Labs: CBC, BMP 09/06/17 06:10 09/06/17 06:10 INR, PTT INR 1.00 (0.82-1.09) 09/05/17 20:36 Problem List - Problems (1) Recurrent falls Code(s): R29.6 - REPEATED FALLS (2) Parkinson disease Code(s): G20 - PARKINSON'S DISEASE (3) Elevated troponin Code(s): R74.8 - ABNORMAL LEVELS OF OTHER SERUM ENZYMES (4) HTN (hypertension) Code(s): I10 - ESSENTIAL (PRIMARY) HYPERTENSION Qualifiers: Hypertension type: essential hypertension Qualified Code(s): I10 - Essential (primary) hypertension (5) Hyperlipemia Code(s): E78.5 - HYPERLIPIDEMIA, UNSPECIFIED (6) Hyperthyroidism Code(s): E05.90 - THYROTOXICOSIS, UNSP WITHOUT THYROTOXIC CRISIS OR STORM Assessment/Plan (1) Recurrent falls Assessment/Plan: s/p acute fall at home, mechanical all imaging negative ambulated 55 ft w/ PT but requires assistance with ambulation/transfers continue PT fall precautions SNF placement Code(s): R29.6 - REPEATED FALLS (2) Parkinson disease Assessment/Plan: stable continue stalevo, sinemet, requip, cogentin dysphagia puree diet- evaluated by speech in 06/18 honey nectar thick liquids PT fall precautions neuro following Code(s): G20 - PARKINSON'S DISEASE (3) Elevated troponin Assessment/Plan: ACS ruled out ekg unremarkable cardiology following Code(s): R74.8 - ABNORMAL LEVELS OF OTHER SERUM ENZYMES (4) HTN (hypertension) Assessment/Plan: controlled continue lisinopril Code(s): I10 - ESSENTIAL (PRIMARY) HYPERTENSION Qualifiers: Hypertension type: essential hypertension Qualified Code(s): I10 - Essential (primary) hypertension (5) Hyperlipemia Assessment/Plan: chronic continue statin Code(s): E78.5 - HYPERLIPIDEMIA, UNSPECIFIED (6) Hyperthyroidism Assessment/Plan: tsh wnl continue PTU Code(s): E05.90 - THYROTOXICOSIS, UNSP WITHOUT THYROTOXIC CRISIS OR STORM Assessment/Plan Dispo: UNSAFE DISCHARGE HOME. Pt lives at home alone and only receives 2 hours of aide services,family lives far and unable to provide provide further assistance. Discussed with daughter at bedside. CM/SW informed of dispo plan. Awaiting SNF.
[2017-09-07] MEDS: [UNRECOGNIZED DRUG - OTHER] PO SCH ×2 (14:12→21:14)
[2017-09-07] MEDS: CARBIDOPA PO SCH ×2 (14:12→21:14)
[2017-09-07] MEDS: ATORVASTATIN CA 10 MG TABLET (FP) PO SCH (21:13)
[2017-09-08] MEDS: ROPINIROLE HCL 4 MG PO SCH (00:36)
[2017-09-08] MEDS: [UNRECOGNIZED DRUG - OTHER] PO SCH ×3 (05:35→21:08)
[2017-09-08] MEDS: CARBIDOPA PO SCH ×3 (05:35→21:08)
[2017-09-08] MEDS ORDERED: PT OWN MED DRAWER 7, Y5N ONE ×3 (06:23→20:58)
[2017-09-08] MEDS: RANITIDINE HCL 150 MG TABLET (FP) PO SCH ×2 (09:14→21:06)
[2017-09-08] MEDS: ASPIRIN 81 MG CHEWABLE TABLETS PO SCH (09:14)
[2017-09-08] MEDS: CHOLECALCIFEROL (VITAMIN D3) 1,000 UNIT TABLET (FP) PO SCH (09:15)
[2017-09-08] MEDS: PROPYLTHIOURACIL 50 MG TABLET (UD) PO SCH ×2 (09:15→21:06)
[2017-09-08] MEDS: LISINOPRIL 20 MG TABLET (FP) PO SCH (09:15)
--- NOTE | 2017-09-08 09:35 | PN ---
Progress Note (short form) - Note Progress Note: Neurology HISTORY OF PRESENT ILLNESS: This is an 87 year old male with Parkinson's disease, hypertension, hyperlipidemia, diverticulosis, colon polyps, hyperthyroid, hematuria who sustained a fall prompting his admission . Reportedly got his foot got stuck on the carpeting when he was turning around and he lost his balance. He denies any other recent fall. Ct head completed and without acute changes. C spine CT also stable. Previously was seeing Dr. Arthur but family had requested me to consult. Medication regiement includes Stalevo, Ropinerole, and Benztropine. Seen at bedside today and stable appearing, minimal cogwheeling, but does have bradykinesia and hypophonic. Does not appear to have significant decline and stable appearing. Would not make significant change at this time and possibly mechanical fall. Remains neurologically stable. Vital Signs Temperature 98 F 09/08/17 09:00 Pulse Rate 66 09/08/17 09:00 Respiratory Rate 20 09/08/17 09:00 Blood Pressure 135/70 09/08/17 09:00 O2 Sat by Pulse Oximetry (%) 96 09/08/17 09:00 GENERAL: Awake, alert, and fully oriented, in no acute distress. HEAD: Normal with no signs of trauma. EYES: Pupils equal, round and reactive to light, extraocular movements intact, sclera anicteric, conjunctiva clear. No lid lag. EARS, NOSE, THROAT: Ears normal, nares patent, oropharynx clear without exudates. Moist mucous membranes. NECK: Normal range of motion, supple without lymphadenopathy, JVD, or masses. LUNGS: Breath sounds equal, clear to auscultation bilaterally. No wheezes, and no crackles. No accessory muscle use. HEART: Regular rate and rhythm, normal S1 and S2 without murmur, rub or gallop. ABDOMEN: Soft, nontender, not distended, normoactive bowel sounds, no guarding, no rebound, no masses. No hepatomegaly or splenomegaly. MUSCULOSKELETAL: Normal range of motion at all joints. No bony deformities or tenderness. No CVA tenderness. rigidity noted UPPER EXTREMITIES: 2+ pulses, warm, well-perfused. No cyanosis. No clubbing. No peripheral edema. LOWER EXTREMITIES: 2+ pulses, warm, well-perfused. No calf tenderness. 2+ peripheral edema. NEUROLOGICAL: Cranial nerves II-XII intact. Hypophonic speech, sensory intact, minimal cogwheeling, bradykinesia noted, gait deferred PSYCHIATRIC: Cooperative. Good eye contact. Appropriate mood and affect. SKIN: Warm, dry, normal turgor, no rashes or lesions noted, normal capillary refill. CBCD WBC 7.3 K/mm3 (4.0-10.0) 09/06/17 06:10 RBC 3.79 M/mm3 (4.00-5.60) L 09/06/17 06:10 Hgb 11.3 GM/dL (11.7-16.9) L 09/06/17 06:10 Hct 33.7 % (35.4-49) L 09/06/17 06:10 MCV 89.0 fl (80-96) 09/06/17 06:10 MCHC 33.7 g/dl (32.0-35.9) 09/06/17 06:10 RDW 14.7 % (11.9-15.9) 09/06/17 06:10 Plt Count 121 K/MM3 (134-434) L 09/06/17 06:10 MPV 8.3 fl (7.5-11.1) 09/06/17 06:10 CMP Sodium 144 mmol/L (136-145) 09/06/17 06:10 Potassium 4.0 mmol/L (3.5-5.1) 09/06/17 06:10 Chloride 108 mmol/L (98-107) H 09/06/17 06:10 Carbon Dioxide 28 mmol/L (21-32) 09/06/17 06:10 Anion Gap 8 (8-16) 09/06/17 06:10 BUN 16 mg/dL (7-18) 09/06/17 06:10 Creatinine 0.8 mg/dL (0.7-1.3) D 09/06/17 06:10 Creat Clearance w eGFR > 60 (>60) 09/05/17 20:36 Calcium 9.3 mg/dL (8.5-10.1) 09/06/17 06:10 Total Bilirubin 0.5 mg/dL (0.2-1.0) D 09/05/17 20:36 AST 20 U/L (15-37) 09/05/17 20:36 ALT 11 U/L (12-78) L D 09/05/17 20:36 Alkaline Phosphatase 52 U/L (45-117) 09/05/17 20:36 Total Protein 6.5 g/dl (6.4-8.2) 09/05/17 20:36 Albumin 3.3 g/dl (3.4-5.0) L 09/05/17 20:[address] head noncontrast Impression: Moderate atrophy. No gross evidence of a focal intracranial lesion or hemorrhage is seen. Stable focal low-attenuation lesion again seen in the right parietal bone, posteriorly. Differential diagnosis includes a hemangioma, among other possibilities. CT c-spine noncontrast IMPRESSION: No significant interval change. The alignment is satisfactory. No gross fracture, subluxation or jumped facets are identified. CXR portable Impression: Mild cardiomegaly without evidence of acute lung disease. Linear pleural calcification over the right hemidiaphragm suggestive of prior asbestos exposure. Correlate clinically ASSESSMENT/PLAN: 87 year old male with Parkinson's disease, hypertension, hyperlipidemia, diverticulosis, colon polyps, hyperthyroid, hematuria who sustained a fall prompting his admission . Reportedly got his foot got stuck on the carpeting when he was turning around and he lost his balance. He denies any other recent fall. Ct head completed and without acute changes. C spine CT also stable. Previously was seeing Dr. Arthur but family had requested me to consult. Medication regiement includes Stalevo, Ropinerole, and Benztropine. Remains stable appearing, minimal cogwheeling, but does have bradykinesia and hypophonic , consistent with Parkinson's Disease. Does not appear to have significant decline and stable appearing. Would not make signficant change at this time and possibly mechanical fall. Fall precautions, physical therapy. Consider rehab if qualifies and patient in agreement. Neurologically stable at this time. Cont home lisinopril, Statin for hyperlipidemia, not likely statin induced myopathy. DVT ppx.
--- NOTE | 2017-09-08 09:46 | PN ---
Progress Note, Physician Chief Complaint: Pt lying in bbed in no acute distress. Denies any chest pain, sob, n/v/d - Current Medication List Current Medications: Active Medications Aspirin (Asa -) 81 mg PO DAILY [facility] Last Admin: 09/08/17 09:14 Dose: 81 mg Atorvastatin Calcium (Lipitor -) 10 mg PO HS [facility] Benztropine Mesylate (Cogentin -) 1 mg PO DAILY [facility] Carbidopa/Levodopa/Entacapone (Stalevo 50 -) 1 tab PO TID [facility] Last Admin: 09/08/17 05:35 Dose: 1 tab Cholecalciferol (Vitamin D3 -) 1,000 unit PO DAILY [facility] Last Admin: 09/08/17 09:15 Dose: 1,000 unit Lisinopril (Prinivil) 20 mg PO DAILY [facility] Last Admin: 09/08/17 09:15 Dose: 20 mg Propylthiouracil (Ptu -) 50 mg PO BID [facility] Last Admin: 09/08/17 09:15 Dose: 50 mg Ranitidine HCl (Zantac -) 150 mg PO BID [facility] Last Admin: 09/08/17 09:14 Dose: 150 mg - Objective Vital Signs: Vital Signs Temperature 98 F 09/08/17 09:00 Pulse Rate 66 09/08/17 09:00 Respiratory Rate 20 09/08/17 09:00 Blood Pressure 135/70 09/08/17 09:00 O2 Sat by Pulse Oximetry (%) 96 09/08/17 09:00 Labs: CBC, BMP 09/06/17 06:10 09/06/17 06:10 INR, PTT INR 1.00 (0.82-1.09) 09/05/17 20:36 Problem List - Problems (1) Recurrent falls Code(s): R29.6 - REPEATED FALLS (2) Parkinson disease Code(s): G20 - PARKINSON'S DISEASE (3) Elevated troponin Code(s): R74.8 - ABNORMAL LEVELS OF OTHER SERUM ENZYMES (4) HTN (hypertension) Code(s): I10 - ESSENTIAL (PRIMARY) HYPERTENSION Qualifiers: Hypertension type: essential hypertension Qualified Code(s): I10 - Essential (primary) hypertension (5) Hyperlipemia Code(s): E78.5 - HYPERLIPIDEMIA, UNSPECIFIED (6) Hyperthyroidism Code(s): E05.90 - THYROTOXICOSIS, UNSP WITHOUT THYROTOXIC CRISIS OR STORM
[2017-09-08] MEDS ORDERED: ROPINIROLE HCL 4 MG PO SCH (10:00)
--- NOTE | 2017-09-08 11:14 | PN ---
Progress Note (short form) - Note Progress Note: s: no cp sob palps dizzy o: Vital Signs Period Temp Pulse Resp BP Sys/Bran Pulse Ox Last 24 Hr 97.0 F-98.3 F 66-73 18-20 119-147/50-80 96-96 nad no jvd rrr s1s2 no mrg cta bl nl eff aaox3 trace le edema bl, no c/c abd nt nd pos bs no jaundice diaphoresis Current Medications Generic Name Dose Route Start Last Admin Trade Name Bradley PRN Reason Stop Dose Admin Aspirin 81 mg 09/08/17 10:00 09/08/17 09:14 Asa - PO 81 mg DAILY ANDREW Administration Atorvastatin Calcium 10 mg 09/08/17 22:00 Lipitor - PO HS ANDREW Benztropine Mesylate 1 mg 09/08/17 10:00 Cogentin - PO DAILY ANDREW Carbidopa/Levodopa/Entacapone 1 tab 09/08/17 06:00 09/08/17 05:35 Stalevo 50 - PO 1 tab TID ANDREW Administration Cholecalciferol 1,000 unit 09/08/17 10:00 09/08/17 09:15 Vitamin D3 - PO 1,000 unit DAILY ANDREW Administration Lisinopril 20 mg 09/08/17 10:00 09/08/17 09:15 Prinivil PO 20 mg DAILY ANDREW Administration Propylthiouracil 50 mg 09/08/17 10:00 09/08/17 09:15 Ptu - PO 50 mg BID ANDREW Administration Ranitidine HCl 150 mg 09/08/17 10:00 09/08/17 09:14 Zantac - PO 150 mg BID ANDREW Administration CBC, BMP 09/06/17 06:10 09/06/17 06:10 ecg: sr, nl intervals, no ischemic changes cxr: no chf echo 10/2013: tds; mild lvh, nl lv/rv, no sig valve path tele: sr, pacs a/p: 87 m hx parkinsons, htn, hld here s/p fall. fall: -mechanical in nature, no indication of cardiac etiology htn: -continue home med hld: -cont statin trop elevation: -borderline trop elevation with nl %mb, flat trend x3. ecg unremarkable. no cardiac sxs. likely a non specific finding, not c/w acs. stable for snf, dc tele
--- NOTE | 2017-09-08 11:54 | PN ---
Progress Note, Physician Chief Complaint: Pt lying in bed in no acute distress. Denies any chest pain, sob, n/v/d, or dysphagia - Current Medication List Current Medications: Active Medications Aspirin (Asa -) 81 mg PO DAILY [facility] Last Admin: 09/08/17 09:14 Dose: 81 mg Atorvastatin Calcium (Lipitor -) 10 mg PO HS [facility] Benztropine Mesylate (Cogentin -) 1 mg PO DAILY [facility] Carbidopa/Levodopa/Entacapone (Stalevo 50 -) 1 tab PO TID [facility] Last Admin: 09/08/17 05:35 Dose: 1 tab Cholecalciferol (Vitamin D3 -) 1,000 unit PO DAILY [facility] Last Admin: 09/08/17 09:15 Dose: 1,000 unit Lisinopril (Prinivil) 20 mg PO DAILY [facility] Last Admin: 09/08/17 09:15 Dose: 20 mg Propylthiouracil (Ptu -) 50 mg PO BID [facility] Last Admin: 09/08/17 09:15 Dose: 50 mg Ranitidine HCl (Zantac -) 150 mg PO BID [facility] Last Admin: 09/08/17 09:14 Dose: 150 mg - Objective Vital Signs: Vital Signs Temperature 98 F 09/08/17 09:00 Pulse Rate 66 09/08/17 09:00 Respiratory Rate 20 09/08/17 09:00 Blood Pressure 135/70 09/08/17 09:00 O2 Sat by Pulse Oximetry (%) 96 09/08/17 09:00 Constitutional: Yes: Well Nourished, No Distress Cardiovascular: Yes: WNL, Regular Rate and Rhythm Respiratory: Yes: WNL, Regular, CTA Bilaterally. No: Accessory Muscle Use, SOB , Tachypnea, Wheezes Gastrointestinal: Yes: WNL, Normal Bowel Sounds, Soft. No: Distention, Tenderness Genitourinary: Yes: WNL Edema: No Neurological: Yes: Alert, Oriented, Other (bradykinesia) Psychiatric: Yes: WNL, Alert, Oriented Labs: CBC, BMP 09/06/17 06:10 09/06/17 06:10 INR, PTT INR 1.00 (0.82-1.09) 09/05/17 20:36 Problem List - Problems (1) Recurrent falls Code(s): R29.6 - REPEATED FALLS (2) Parkinson disease Code(s): G20 - PARKINSON'S DISEASE (3) Elevated troponin Code(s): R74.8 - ABNORMAL LEVELS OF OTHER SERUM ENZYMES (4) HTN (hypertension) Code(s): I10 - ESSENTIAL (PRIMARY) HYPERTENSION Qualifiers: Hypertension type: essential hypertension Qualified Code(s): I10 - Essential (primary) hypertension (5) Hyperlipemia Code(s): E78.5 - HYPERLIPIDEMIA, UNSPECIFIED (6) Hyperthyroidism Code(s): E05.90 - THYROTOXICOSIS, UNSP WITHOUT THYROTOXIC CRISIS OR STORM Assessment/Plan (1) Recurrent falls Assessment/Plan: s/p acute fall at home, mechanical all imaging negative ambulated 60 ft w/ PT but requires assistance with ambulation/transfers continue PT BID fall precautions SNF placement Code(s): R29.6 - REPEATED FALLS (2) Parkinson disease Assessment/Plan: stable continue stalevo, sinemet, requip, cogentin evaluated by speech in 06/18, advanced to regular, tolerating regular diet at home PT fall precautions neuro following Code(s): G20 - PARKINSON'S DISEASE (3) Elevated troponin Assessment/Plan: ACS ruled out ekg unremarkable cardiology following Code(s): R74.8 - ABNORMAL LEVELS OF OTHER SERUM ENZYMES (4) HTN (hypertension) Assessment/Plan: controlled continue lisinopril Code(s): I10 - ESSENTIAL (PRIMARY) HYPERTENSION Qualifiers: Hypertension type: essential hypertension Qualified Code(s): I10 - Essential (primary) hypertension (5) Hyperlipemia Assessment/Plan: chronic continue statin Code(s): E78.5 - HYPERLIPIDEMIA, UNSPECIFIED (6) Hyperthyroidism Assessment/Plan: tsh wnl continue PTU Code(s): E05.90 - THYROTOXICOSIS, UNSP WITHOUT THYROTOXIC CRISIS OR STORM Assessment/Plan Dispo: UNSAFE DISCHARGE HOME. Awaiting SNF placement
[2017-09-08] MEDS: BENZTROPINE MESYLATE 1 MG TABLET (FP) PO SCH (13:22)
[2017-09-08] MEDS ORDERED: ATORVASTATIN CA 10 MG TABLET (FP) PO SCH (22:00)
[2017-09-09] MEDS: [UNRECOGNIZED DRUG - OTHER] PO SCH ×2 (06:30→15:03)
[2017-09-09] MEDS: CARBIDOPA PO SCH ×2 (06:30→15:03)
[2017-09-09] MEDS ORDERED: PT OWN MED DRAWER 7, Y5N ONE ×2 (06:49→10:02)
--- NOTE | 2017-09-09 08:00 | DS ---
Physical Exam: SUBJECTIVE: Patient seen and examined. no complaints. eager to go to [facility]. denies Cp, SOB, fever, chills, N/V/C/D OBJECTIVE: Vital Signs Period Temp Pulse Resp BP Sys/Bran Pulse Ox Last 24 Hr 97.3 F-98.3 F 63-79 16-20 96-135/52-70 96-97 PHYSICAL EXAM GENERAL: The patient is awake, alert, and fully oriented, in no acute distress. HEAD: Normal with no signs of trauma. EYES: PERRL, extraocular movements intact, sclera anicteric, conjunctiva clear. ENT: Ears normal, nares patent, oropharynx clear without exudates, moist mucous membranes. NECK: Trachea midline, full range of motion, supple. LUNGS: Breath sounds equal, clear to auscultation bilaterally, no wheezes, no crackles, no accessory muscle use. HEART: Regular rate and rhythm, S1, S2 without murmur, rub or gallop. ABDOMEN: Soft, nontender, nondistended, normoactive bowel sounds, no guarding, no rebound, no hepatosplenomegaly, no masses. EXTREMITIES: 2+ pulses, warm, well-perfused, no edema. NEUROLOGICAL: Cranial nerves II through XII grossly intact. Normal speech, gait not observed. PSYCH: Normal mood, normal affect. SKIN: Warm, dry, normal turgor, no rashes or lesions noted. LABS HOSPITAL COURSE: Date of Admission:09/06/17 Date of Discharge: 09/09/17 admitting diagnosis: Mechanical fall, tropinemia Pre hospital course This is an 87 year old male with a significant past medical history of Parkinson 's disease who sustained a fall today. Pt reports his foot got stuck on the carpeting when he was turning around and he lost his balance. He denies any other recent fall. He has an abrasion to the top of his head which he states he sustained when he hit his head on the cabinet. Subsequent hospital course Admitted to [facility] for continuous cardiac monitoring. mild tropinemia was noted which stayed stable with no elevation in MB%. evaluated by cardio and no further intervention was deemed necessary. was evaluated by neuro and continued on home medications. Walked by PT able to ambulate 75ft but requiring a lot of assistance. determined unsafe to d/c home and required [facility]. d/c to [facility]. Minutes to complete discharge: 40 Discharge Summary Reason For Visit: ABNORMAL GAIT,RECURRENT FALLS,PARKINSON'S DISEASE Current Active Problems Gait abnormality (Chronic) Parkinson disease (Chronic) Recurrent falls (Chronic) Condition: Improved - Instructions Diet, Activity, Other Instructions: You were admitted to the hospital due to your fall at home. It was determined that you would benefit from rehab and being sent to the [facility]. Continue your home medications at this time. THey have not changed. Continue a low salt and low cholesterol diet Follow up with Dr Hill (primary care) and Dr Brandon (neurology) in 1-2 weeks If you develop chest pain or shortness of breath return to the hospital. Referrals: Angel Brandon MD [Staff Physician] - Marcello Hill MD [Primary Care Provider] - 1 Week Disposition: HALF-WAY FACILITY - Home Medications Comprehensive Discharge Medication List: Ambulatory Orders Aspirin [Baby Aspirin] 81 mg PO DAILY 06/28/11 Cholecalciferol (Vitamin D3) [Vitamin D3 -] 0 unit PO DAILY 06/28/11 Lisinopril [Prinivil] 20 mg PO DAILY 06/28/11 Ropinirole HCl [Requip Xl] 4 mg PO BID 06/28/11 Simvastatin [Zocor] 20 mg PO DAILY 06/28/11 Propylthiouracil [Ptu -] 50 mg PO BID 07/13/11 Benztropine Mesylate [Cogentin -] 1 mg PO DAILY 04/06/16 Ranitidine [Zantac -] 150 mg PO BID #60 tablet 04/08/16 Carbidopa/Levodopa/Entacapone [Stalevo 50 Tablet] 1 each PO TID 09/06/17 This patient is new to me today: Yes Date on this admission: 09/09/17 Emergency Visit: Yes ED Registration Date: 09/06/17 Care time: The patient presented to the Emergency Department on the above date and was hospitalized for further evaluation of their emergent condition. Critical Care patient: No - Discharge Referral Referred to [facility] No
[2017-09-09] MEDS: ASPIRIN 81 MG CHEWABLE TABLETS PO SCH (10:03)
[2017-09-09] MEDS: CHOLECALCIFEROL (VITAMIN D3) 1,000 UNIT TABLET (FP) PO SCH (10:04)
[2017-09-09] MEDS: RANITIDINE HCL 150 MG TABLET (FP) PO SCH (10:04)
[2017-09-09] MEDS: BENZTROPINE MESYLATE 1 MG TABLET (FP) PO SCH (10:04)
[2017-09-09] MEDS: LISINOPRIL 20 MG TABLET (FP) PO SCH (10:04)
[2017-09-09] MEDS: PROPYLTHIOURACIL 50 MG TABLET (UD) PO SCH (10:05)
[2017-09-09 11:02] VITALS: TEMP 97
--- NOTE | 2017-09-09 11:56 | PN ---
Progress Note (short form) - Note Progress Note: Neurology HISTORY OF PRESENT ILLNESS: This is an 87 year old male with Parkinson's disease, hypertension, hyperlipidemia, diverticulosis, colon polyps, hyperthyroid, hematuria who sustained a fall prompting his admission . Reportedly got his foot got stuck on the carpeting when he was turning around and he lost his balance. He denies any other recent fall. Ct head completed and without acute changes. C spine CT also stable. Previously was seeing Dr. Arthur but family had requested me to consult. Medication regiement includes Stalevo, Ropinerole, and Benztropine. Neurologically stable, for discharge today. Well appearing, no complaints. Vital Signs Period Temp Pulse Resp BP Sys/Bran Pulse Ox Last 24 Hr 97 F-98.3 F 63-79 16-20 96-133/43-57 97-98 GENERAL: Awake, alert, and fully oriented, in no acute distress. HEAD: Normal with no signs of trauma. EYES: Pupils equal, round and reactive to light, extraocular movements intact, sclera anicteric, conjunctiva clear. No lid lag. EARS, NOSE, THROAT: Ears normal, nares patent, oropharynx clear without exudates. Moist mucous membranes. NECK: Normal range of motion, supple without lymphadenopathy, JVD, or masses. LUNGS: Breath sounds equal, clear to auscultation bilaterally. No wheezes, and no crackles. No accessory muscle use. HEART: Regular rate and rhythm, normal S1 and S2 without murmur, rub or gallop. ABDOMEN: Soft, nontender, not distended, normoactive bowel sounds, no guarding, no rebound, no masses. No hepatomegaly or splenomegaly. MUSCULOSKELETAL: Normal range of motion at all joints. No bony deformities or tenderness. No CVA tenderness. rigidity noted UPPER EXTREMITIES: 2+ pulses, warm, well-perfused. No cyanosis. No clubbing. No peripheral edema. LOWER EXTREMITIES: 2+ pulses, warm, well-perfused. No calf tenderness. 2+ peripheral edema. NEUROLOGICAL: Cranial nerves II-XII intact. Hypophonic speech, sensory intact, minimal cogwheeling, bradykinesia noted, gait deferred PSYCHIATRIC: Cooperative. Good eye contact. Appropriate mood and affect. SKIN: Warm, dry, normal turgor, no rashes or lesions noted, normal capillary refill. CBCD WBC 7.3 K/mm3 (4.0-10.0) 09/06/17 06:10 RBC 3.79 M/mm3 (4.00-5.60) L 09/06/17 06:10 Hgb 11.3 GM/dL (11.7-16.9) L 09/06/17 06:10 Hct 33.7 % (35.4-49) L 09/06/17 06:10 MCV 89.0 fl (80-96) 09/06/17 06:10 MCHC 33.7 g/dl (32.0-35.9) 09/06/17 06:10 RDW 14.7 % (11.9-15.9) 09/06/17 06:10 Plt Count 121 K/MM3 (134-434) L 09/06/17 06:10 MPV 8.3 fl (7.5-11.1) 09/06/17 06:10 CMP Sodium 144 mmol/L (136-145) 09/06/17 06:10 Potassium 4.0 mmol/L (3.5-5.1) 09/06/17 06:10 Chloride 108 mmol/L (98-107) H 09/06/17 06:10 Carbon Dioxide 28 mmol/L (21-32) 09/06/17 06:10 Anion Gap 8 (8-16) 09/06/17 06:10 BUN 16 mg/dL (7-18) 09/06/17 06:10 Creatinine 0.8 mg/dL (0.7-1.3) D 09/06/17 06:10 Creat Clearance w eGFR > 60 (>60) 09/05/17 20:36 Calcium 9.3 mg/dL (8.5-10.1) 09/06/17 06:10 Total Bilirubin 0.5 mg/dL (0.2-1.0) D 09/05/17 20:36 AST 20 U/L (15-37) 09/05/17 20:36 ALT 11 U/L (12-78) L D 09/05/17 20:36 Alkaline Phosphatase 52 U/L (45-117) 09/05/17 20:36 Total Protein 6.5 g/dl (6.4-8.2) 09/05/17 20:36 Albumin 3.3 g/dl (3.4-5.0) L 09/05/17 20:[address] head noncontrast Impression: Moderate atrophy. No gross evidence of a focal intracranial lesion or hemorrhage is seen. Stable focal low-attenuation lesion again seen in the right parietal bone, posteriorly. Differential diagnosis includes a hemangioma, among other possibilities. CT c-spine noncontrast IMPRESSION: No significant interval change. The alignment is satisfactory. No gross fracture, subluxation or jumped facets are identified. CXR portable Impression: Mild cardiomegaly without evidence of acute lung disease. Linear pleural calcification over the right hemidiaphragm suggestive of prior asbestos exposure. Correlate clinically ASSESSMENT/PLAN: 87 year old male with Parkinson's disease, hypertension, hyperlipidemia, diverticulosis, colon polyps, hyperthyroid, hematuria who sustained a fall prompting his admission . Reportedly got his foot got stuck on the carpeting when he was turning around and he lost his balance. He denies any other recent fall. Ct head completed and without acute changes. C spine CT also stable. Previously was seeing Dr. Arthur but family had requested me to consult. Medication regiement includes Stalevo, Ropinerole, and Benztropine. Remains stable appearing, minimal cogwheeling, but does have bradykinesia and hypophonic , consistent with Parkinson's Disease. Neurologically stable at this time. Neurology medication can be kept the same, for discharge.
--- NOTE | 2017-09-09 12:37 | PN ---
Progress Note, Physician Chief Complaint: s/p fall History of Present Illness: denies cp, sob, palpitations, leg swelling - Current Medication List Current Medications: Active Medications Aspirin (Asa -) 81 mg PO DAILY [facility] Last Admin: 09/09/17 10:03 Dose: 81 mg Atorvastatin Calcium (Lipitor -) 10 mg PO HS [facility] Last Admin: 09/08/17 21:06 Dose: 10 mg Benztropine Mesylate (Cogentin -) 1 mg PO DAILY [facility] Last Admin: 09/09/17 10:04 Dose: 1 mg Carbidopa/Levodopa/Entacapone (Stalevo 50 -) 1 tab PO TID [facility] Last Admin: 09/09/17 06:30 Dose: 1 tab Cholecalciferol (Vitamin D3 -) 1,000 unit PO DAILY [facility] Last Admin: 09/09/17 10:04 Dose: 1,000 unit Lisinopril (Prinivil) 20 mg PO DAILY [facility] Last Admin: 09/09/17 10:04 Dose: 20 mg Propylthiouracil (Ptu -) 50 mg PO BID [facility] Last Admin: 09/09/17 10:05 Dose: 50 mg Ranitidine HCl (Zantac -) 150 mg PO BID [facility] Last Admin: 09/09/17 10:04 Dose: 150 mg - Objective Vital Signs: Vital Signs Temperature 97 F L 09/09/17 10:00 Pulse Rate 78 09/09/17 10:00 Respiratory Rate 18 09/09/17 10:00 Blood Pressure 100/43 09/09/17 10:00 O2 Sat by Pulse Oximetry (%) 98 09/09/17 09:00 Constitutional: Yes: Well Nourished, No Distress, Calm Cardiovascular: Yes: Regular Rate and Rhythm, S1, S2. No: Gallop, Murmur Respiratory: Yes: Regular, CTA Bilaterally. No: Accessory Muscle Use, Rales, Wheezes Extremities: No: Cold Edema: No Neurological: Yes: Alert. No: Seizure Psychiatric: No: Agitated Labs: CBC, BMP 09/06/17 06:10 09/06/17 06:10 INR, PTT INR 1.00 (0.82-1.09) 09/05/17 20:36 Assessment/Plan ecg: sr, nl intervals, no ischemic changes cxr: no chf echo 10/2013: tds; mild lvh, nl lv/rv, no sig valve path a/p: 87 m hx parkinsons, htn, hld here s/p fall. fall: -mechanical in nature, no indication of cardiac etiology htn: -bp controlled -continue home med hld: -cont statin trop elevation: -borderline trop elevation with nl %mb, flat trend x3. ecg unremarkable. no cardiac sxs. likely a non specific finding, not c/w acs. off tele; stable for discharge from [facility]
[2017-09-09 14:34] VITALS: BP 123/61; PULSE 68
== END 2017-09-09 15:20 | DRG 57 ==
LOC: JER 19:27 → JERBED 22:21 → J4S 09-06 16:07 → OBSVTOIN 09-06 16:11 → J4S 09-06 20:06
PROVIDERS: ADMIT Internal Medicine; ATTEND Internal Medicine
DX: G20 Parkinson's disease (principal); S00.01XA Abrasion of scalp, initial encounter; W01.198A Fall on same level from slipping, tripping and stumbling with subsequent striking against other object, initial encounter; Y93.01 Activity, walking, marching and hiking; Y92.038 Other place in apartment as the place of occurrence of the external cause; R26.9 Unspecified abnormalities of gait and mobility; R29.6 Repeated falls; Y99.8 Other external cause status; I44.0 Atrioventricular block, first degree; I10 Essential (primary) hypertension; E78.5 Hyperlipidemia, unspecified; E05.90 Thyrotoxicosis, unspecified without thyrotoxic crisis or storm; K57.30 Diverticulosis of large intestine without perforation or abscess without bleeding; Z87.891 Personal history of nicotine dependence
CPT/HCPCS: 36415; 70450-TC; 71045-TC-FY; 72125-TC; 80048; 80053; 82550; 82553; 83735; 83880; 84100; 84443; 84484; 85025; 85610; 93005; 93010; 97116-GP; 97161-GP; 99284-25; G0378